=== PATIENT | female | born 1985 | race Two or more races ===

== ENCOUNTER 2021-06-29 12:20 | Emergency (ER) | payer MEDICAID, SELFPAY ==
--- NOTE | ~2021-06-29 | CT_ITS ---
EXAMINATION: CT CHEST WITHOUT CONTRAST CLINICAL INFORMATION: Chest pain. History of hiatal hernia COMPARISON: None TECHNIQUE: Multidetector volumetric CT imaging of the chest was done. Axial MIP volume rendering provided. Sagittal and coronal reformatted images were obtained. This CT examination was performed using dose optimization techniques as appropriate, variously including the following: *Automated exposure control *Adjustment of mA and/or kV according to patient size (this includes techniques or standardized protocols for targeted exams where dose is matched to indication/reason for exam; i.e. extremities or head) *Use of iterative reconstruction technique DLP: 469 mGy-cm FINDINGS: INSURANCE CLAIMS REPRESENTATIVE: Unremarkable. LUNGS: The lungs are well-expanded and clear of acute pneumonic consolidation. There is a three-way calcified nodule right lower lobe posteriorly. MEDIASTINUM: The mediastinum is normal. PLEURA: There is no pleural effusion. No pleural mass or thickening. AXILLA: No lymphadenopathy. UPPER ABDOMEN: Unremarkable. OSSEOUS STRUCTURES: Unremarkable. CT/CT chest wo con IMPRESSION: Unremarkable CT chest exam. Fleischner guidelines were followed.
[2021-06-29 12:27] VITALS: BP 131/70; PULSE 75; RESP 18; TEMP 36.8; O2SAT 100; BMI 47.5
--- NOTE | 2021-06-29 14:28 | ECG_ITS ---
Test Reason : abd pain Blood Pressure : / mmHG Vent. Rate : 064 BPM Atrial Rate : 064 BPM P-R Int : 162 ms QRS Dur : 082 ms QT Int : 402 ms P-R-T Axes : 033 012 016 degrees QTc Int : 414 ms Normal sinus rhythm Normal ECG No previous ECGs available Referred By: Rosangela Sanchez Electronically Signed By:Carlos Alberto Walton
--- NOTE | 2021-06-29 14:37 | ED_ITS ---
HPI - Abdominal Pain General Chief Complaint: Abdominal Pain Stated Complaint: Hernia with Multiple Complaints Time Seen by Provider: 06/29/21 12:40 Source: patient and family Mode of arrival: ambulatory Limitations: no limitations History of Present Illness HPI narrative: 36 y/o female with history of a hiatial hernia presents to the ER with worsening epigastric abdominal pain x1 week that radiates up into her chest. She also reports nausea with intermittent vomiting. She has had subjective fevers as well. She states the pain in her upper abdomen is burning and goes up into the chest. She is unable to tolerate p.o. and states the pain does not get worse after eating. She saw was seen by a bleach analyst in [place] where she used to live who told her that her hernia was non operable. She has been t rialed on several medications including Zantac, Pepcid, Prilosec with no relief. Her last EGD was several years ago. MD elicited complaint: abdominal pain Pertinent past history: other (Hiatal hernia) Onset (ago): week(s) (1) Pain Consistency: intermittent Location: epigastric Severity: moderate Quality: fullness and burning Radiation: chest Migration to: no migration Exacerbating factors: nothing Relieving factors: nothing Context: history of similar episodes Associated symptoms: nausea Related Data Previous Rx's Medication Instructions Recorded ondansetron 4 mg disintegrating 4 mg PO DAILY PRN #10 tab 06/29/21 tablet pantoprazole 40 mg tablet,delayed 40 mg PO DAILY #30 tab 06/29/21 release (Protonix) sucralfate 1 gram tablet (Carafate) 1 g PO BID #60 tab 06/29/21 Allergies Allergy/AdvReac Type Severity Reaction Status Date / Time Unable to Assess Allergy Unverified 06/29/21 14:28 Review of Systems Review of Systems Constitutional: No Fever, No Chills ENT/Mouth: No sore throat, No Rhinorrhea, No Swallowing Difficulty Cardiovascular: + Chest Pain, No SOB, No Orthopnea, No Edema Respiratory: No Cough, No Sputum, No Wheezing, No dyspnea Gastrointestinal: + Nausea, + Vomiting, No Diarrhea,+ abdominal Pain, No Hematochezia, No Melena Genitourinary: No Dysuria, No Urinary Frequency, No Hematuria Musculoskeletal: No joint pain, No Myalgias Skin: No Skin Lesions, No rash Neuro: No Weakness, No Numbness, No Dizziness, No Headache Psych: No Anxiety/Panic, No Depression Heme/Lymph: No Bruising, No Lymphadenopathy Endocrine: No Polyuria, No Polydipsia PMFSH Social History Social History Advance Directives: No Advance Directives Information Provided: Yes Physical Exam ED Vital Signs: Vital Signs - 24 hr 06/29/21 12:27 Temperature 98.2 F Pulse Rate 75 Respiratory Rate 18 Blood Pressure 131/70 Pulse Oximetry 100 BMI result Body Mass Index 47.5 Appearance: Alert. Oriented X3. No acute distress. Eyes: Pupils equal, round and reactive to light. ENT: Pharynx normal. Neck: Normal inspection. Neck supple. CVS: Normal heart rate and rhythm. Pulses normal. Respiratory: No respiratory distress. Breath sounds normal. Abdomen: Obese, Soft and nontender. +BS x4 Skin: Skin warm and dry. Normal skin color. Normal skin turgor. No rashes. Extremities: No lower extremity edema. Neuro: Oriented X 3. No motor deficit. No sensory deficit. Course Course Course Narrative: 36-year-old female with history of a hiatal hernia presents to the ER with 1 week of worsening epigastric pain that radiates up into her chest. She also reports nausea, vomiting and subjective fevers. Her abdominal exam is benign. Will do lab workup and CT scan for further evaluation. IV fluids and Zofran ordered for nausea. Reevaluation(s) Reevaluation #1: Labs ok. Feeling better after zofran and IVF. CT still pending. Reevaluation #2: CT normal. No hiatial hernia. Symptoms most likely due to gastritis vs GERD. Not currently on PPI - will start PPI as well as carafate and PRN zofran. will give GI referral as well for possible EGD. Stable for d/c home. MDM - Abdominal Pain Lab Data Result diagrams: 06/29/21 16:14 06/29/21 14:53 Labs: Lab Results 06/29/21 06/29/21 06/29/21 Range/Units 14:53 14:53 14:53 WBC (4.8-10.8) X10*3/uL RBC (4.20-5.50) X10*6/uL Hgb (12.0-16.0) g/dl Hct (37.0-47.0) % MCV (80.0-98.0) fL MCH (27.0-33.0) pg MCHC (31.0-35.0) g/dl RDW (11.0-16.0) % Plt Count (160-400) X10*3/uL MPV (9.4-12.3) fL Immature Gran % (Auto) (0.0-0.4) % Neut % (Auto) (45-73) % Lymph % (Auto) (20-40) % [place] % (Auto) (2-11) % Eos % (Auto) (0-4) % Baso % (Auto) (0-2) % Lymph # (Auto) (1.2-4.9) X10*3/uL [place] # (Auto) (0.1-1.2) X10*3/uL Eos # (Auto) (0.0-0.4) X10*3/uL Baso # (Auto) (0.0-0.2) X10*3/uL Abs Immat Gran (auto) (0.00-0.03) X10*3/uL Absolute Neuts (auto) (2.0-8.3) x10*3/uL Absolute Nucleated RBC (0.0-0.012) X10*3/uL Nucleated RBC % (auto) (0.0-0.2) /100WBC Sodium 139 (135-145) mmol/L Potassium 4.4 (3.3-5.1) mmol/L Chloride 104 (96-108) mmol/L Carbon Dioxide 26 (22-29) mmol/L Anion Gap 13 (12-20) BUN 10 (9-16) mg/dL Creatinine 0.76 (0.5-1.4) mg/dL Estim Creat Clear Calc 122.3 Estimated GFR > 60 Random Glucose 94 (60-115) mg/dL Calcium 9.7 (8.4-10.2) mg/dL Magnesium 2.2 (1.6-2.6) mg/dL Total Bilirubin 0.3 (0.0-1.0) mg/dL Direct Bilirubin < 0.2 (0.0-0.5) mg/dL AST 18 (5-31) U/L ALT 28 (0-31) U/L Alkaline Phosphatase 66 (39-117) U/L Troponin I High Sens < 3.5 (<3.5-17.0) ng/L Total Protein 7.0 (6.5-8.0) g/dL Albumin 4.4 (3.5-5.0) g/dL Lipase 23 (8-78) U/L COVID-19 (RUBI) Negative (Negative) COVID-19 Clin Com See Note 06/29/21 Range/Units 16:14 WBC 6.8 (4.8-10.8) X10*3/uL RBC 4.59 (4.20-5.50) X10*6/uL Hgb 12.3 (12.0-16.0) g/dl Hct 38.7 (37.0-47.0) % MCV 84.3 (80.0-98.0) fL MCH 26.8 L (27.0-33.0) pg MCHC 31.8 (31.0-35.0) g/dl RDW 13.2 (11.0-16.0) % Plt Count 346 (160-400) X10*3/uL MPV 9.0 L (9.4-12.3) fL Immature Gran % (Auto) 0.6 H (0.0-0.4) % Neut % (Auto) 52.9 (45-73) % Lymph % (Auto) 36.8 (20-40) % [place] % (Auto) 6.5 (2-11) % Eos % (Auto) 2.5 (0-4) % Baso % (Auto) 0.7 (0-2) % Lymph # (Auto) 2.5 (1.2-4.9) X10*3/uL [place] # (Auto) 0.4 (0.1-1.2) X10*3/uL Eos # (Auto) 0.2 (0.0-0.4) X10*3/uL Baso # (Auto) 0.1 (0.0-0.2) X10*3/uL Abs Immat Gran (auto) 0.04 H (0.00-0.03) X10*3/uL Absolute Neuts (auto) 3.6 (2.0-8.3) x10*3/uL Absolute Nucleated RBC 0.000 (0.0-0.012) X10*3/uL Nucleated RBC % (auto) 0.0 (0.0-0.2) /100WBC Sodium (135-145) mmol/L Potassium (3.3-5.1) mmol/L Chloride (96-108) mmol/L Carbon Dioxide (22-29) mmol/L Anion Gap (12-20) BUN (9-16) mg/dL Creatinine (0.5-1.4) mg/dL Estim Creat Clear Calc Estimated GFR Random Glucose (60-115) mg/dL Calcium (8.4-10.2) mg/dL Magnesium (1.6-2.6) mg/dL Total Bilirubin (0.0-1.0) mg/dL Direct Bilirubin (0.0-0.5) mg/dL AST (5-31) U/L ALT (0-31) U/L Alkaline Phosphatase (39-117) U/L Troponin I High Sens (<3.5-17.0) ng/L Total Protein (6.5-8.0) g/dL Albumin (3.5-5.0) g/dL Lipase (8-78) U/L COVID-19 (RUBI) (Negative) COVID-19 Clin Com Critical Care Time Critical Care Time Critical Care Time: No Discharge Plan Discharge Clinical Impression: Gastritis Patient Disposition: Home, Self-Care Instructions: Gastritis (DC), Diet for Stomach Ulcers and Gastritis (ED) Additional Instructions: Your lab workup today was unremarkable. Your CT scan did NOT show any hiatial hernia. Your pain is most likely due to gastritis which is and irritation and inflammation of your stomach lining. Start taking the prescribed medication as directed for this. Stick to a bland diet. Avoid foods high in acid, avoid alcohol and NSAID medications like Aleve, Motrin, Advil or ibuprofen. Follow up with your doctor as needed. Follow up with GI doctor if you symptoms persist despite dietary modifications a nd medication. If you develop new or worsening symptoms call 911 or come back to the ER for further evaluation. Prescriptions: New pantoprazole [Protonix] 40 mg tablet,delayed release (DR/EC) 40 mg PO DAILY Qty: 30 0RF sucralfate [Carafate] 1 gram tablet 1 g PO BID Qty: 60 0RF ondansetron 4 mg tablet,disintegrating 4 mg PO DAILY PRN (Reason: nausea and vomiting) Qty: 10 0RF Referrals: Camilo Bishop MD [Physician] - 1 week (epigastric abd pain) Print Language: Gabonese
[2021-06-29] MEDS: 0.9 % Sodium Chloride 1,000 ML 999 ML IVCONT (15:01)
[2021-06-29] MEDS: ondansetron HCL 4 MG/2 ML VIAL IVPUSH (15:01)
[2021-06-29 15:16] LABS: IDNOW Serial# 16C4AD1C
[2021-06-29 15:17] LABS: COVID-19 Test Negative (Negative)
[2021-06-29 15:25] LABS: Alanine Aminotransferase 28 U/L (0-31); Albumin Level 4.4 g/dL (3.5-5.0); Alkaline Phosphatase 66 U/L (39-117); Anion Gap 13 (12-20); Aspartate Amino Transferase 18 U/L (5-31); Bilirubin Direct < 0.2 mg/dL (0.0-0.5); Bilirubin Total 0.3 mg/dL (0.0-1.0); Blood Urea Nitrogen 10 mg/dL (9-16); Calcium 9.7 mg/dL (8.4-10.2); Carbon Dioxide 26 mmol/L (22-29); Chloride 104 mmol/L (96-108); Creatinine Clr Calc Pharmacy 122.3; Estimated Glomerular Filt Rate > 60; Glucose Random 94 mg/dL (60-115); Lipase 23 U/L (8-78); Magnesium 2.2 mg/dL (1.6-2.6); Potassium 4.4 mmol/L (3.3-5.1); Sodium 139 mmol/L (135-145)
[2021-06-29 15:31] LABS: Troponin-I High Sensitivity < 3.5 ng/L (<3.5-17.0)
[2021-06-29 16:19] LABS: MANUAL DIFF FLAG NO
[2021-06-29 16:21] LABS: Basophils Absolute Auto 0.1 X10*3/uL (0.0-0.2); Basophils Percent Auto 0.7 % (0-2); Eosinophils Absolute Auto 0.2 X10*3/uL (0.0-0.4); Eosinophils Percent Auto 2.5 % (0-4); Hematocrit 38.7 % (37.0-47.0); Hemoglobin 12.3 g/dl (12.0-16.0); Imm Gran Abs Auto 0.04 X10*3/uL (0.00-0.03); Imm Gran Pct Auto 0.6 % (0.0-0.4); Lymphocytes Absolute Auto 2.5 X10*3/uL (1.2-4.9); Lymphocytes Percent Auto 36.8 % (20-40); Mean Corpuscular HGB Conc 31.8 g/dl (31.0-35.0); Mean Corpuscular Hemoglobin 26.8 pg (27.0-33.0); Mean Corpuscular Volume 84.3 fL (80.0-98.0); Monocytes Absolute Auto 0.4 X10*3/uL (0.1-1.2); Monocytes Percent Auto 6.5 % (2-11); Neutrophils Absolute Auto 3.6 x10*3/uL (2.0-8.3); Neutrophils Percent Auto 52.9 % (45-73); Platelet Count 346 X10*3/uL (160-400); Red Blood Count 4.59 X10*6/uL (4.20-5.50); Red Cell Distribution Width 13.2 % (11.0-16.0); White Blood Count 6.8 X10*3/uL (4.8-10.8)
== END 2021-06-29 18:15 | disposition home or self-care (01) ==
PROVIDERS: Physician Assistant; Emergency Provider Emergency Medicine Emergency Medical Services
DX: K29.70 Gastritis, unspecified, without bleeding (principal); M54.6 Pain in thoracic spine; Z79.899 Other long term (current) drug therapy; Z20.822 Contact with and (suspected) exposure to COVID-19
CPT/HCPCS: 36415; 71250; 80048; 80076; 83605; 83690; 83735; 84484; 85025; 87635; 93005; 96374; 99283; 99284; J2405

== ENCOUNTER → 2021-07-07 07:25 | Outpatient (BNVA) | payer MEDICAID, SELFPAY | PROVIDERS: Visit Provider Physician Assistant | DX: K44.9 Diaphragmatic hernia without obstruction or gangrene (principal); R12 Heartburn; R10.13 Epigastric pain; J45.909 Unspecified asthma, uncomplicated | CPT/HCPCS: 99202 ==

== ENCOUNTER 2021-08-14 12:11 | Outpatient (REF) | payer MEDICAID, SELFPAY ==
--- NOTE | ~2021-08-14 | XR_ITS ---
EXAMINATION: XR LUMBOSACRAL SPINE CLINICAL INFORMATION: Low back pain. COMPARISON: None TECHNIQUE: AP, both oblique, and lateral views of the lumbar spine. Lateral view of the lumbosacral junction. FINDINGS: There are 5 nonrib-bearing lumbar vertebra. The bony texture and alignment is satisfactory. No acute fracture, spondylolisthesis, or spondylolysis is identified. There is mild degenerative change of the sacroiliac joints bilaterally right greater than left. XR/XR lumbar spine 4V min IMPRESSION: No acute fracture, spondylolisthesis, or spondylolysis of the lumbar spine with maintenance of disc spaces. Mild sacroiliac joint degenerative change.
== END 2021-08-14 12:12 | disposition home or self-care (01) ==
LOC: HO.XRAY 12:11
PROVIDERS: PCP Internal Medicine; Visit Provider Internal Medicine
DX: M54.50 Low back pain, unspecified (principal)
CPT/HCPCS: 72110

== ENCOUNTER 2021-08-29 07:38 | Emergency (ER) | payer MEDICAID, SELFPAY ==
[2021-08-29 07:42] VITALS: BP 140/78; PULSE 73; RESP 16; TEMP 36.6; O2SAT 99; BMI 38.2
--- NOTE | 2021-08-29 08:39 | ED_ITS ---
HPI - General Adult General Chief complaint: Back Pain/Injury Stated complaint: Body aches Time Seen by Provider: 08/29/21 08:39 Source: patient Mode of arrival: ambulatory Limitations: no limitations History of Present Illness HPI narrative: Patient is a 36 year old female presenting to the emergency department today with low back pain. Patient states that for the last 3 weeks she has had low back pain that is worse with extensive standing times and physical activity. Patient denies any dizziness, lightheadedness, abdominal pain, nausea, vomiting, fever, chills, blurry vision, double vision, loss of vision, chest pain, difficulty breathing, shortness of breath, night sweats, pain with urination, increased urinary frequency, increased urinary urgency, blood in her urine or stool, syncope or a near syncopal episode, recent trauma or falls, bowel incontinence, bladder incontinence, bowel retention, bladder retention, or any other complaints at this time. Onset (ago): week(s) (3) Location: back Radiation: non-radiation Severity: mild Severity scale (1-10): 3 Quality: dull Pain Consistency: constant Relieving factors: none Exacerbating factors: movement Associated symptoms: denies other symptoms Treatments prior to arrival: none Related Data Previous Rx's Medication Instructions Recorded ondansetron 4 mg disintegrating 4 mg PO DAILY PRN #10 tab 06/29/21 tablet pantoprazole 40 mg tablet,delayed 40 mg PO DAILY #30 tab 06/29/21 release (Protonix) sucralfate 1 gram tablet (Carafate) 1 g PO BID #60 tab 06/29/21 pantoprazole 20 mg tablet,delayed 20 mg PO BID PRN #60 tab 07/07/21 release cyclobenzaprine 10 mg tablet 10 mg PO TID PRN 7 Days #21 tab 08/29/21 Allergies Allergy/AdvReac Type Severity Reaction Status Date / Time No Known Allergies Allergy Verified 08/29/21 07:51 Review of Systems Constitutional: Constitutional: Reports no additional constitutional complaints, Denies chills, Denies fever(s) and Denies night sweats Eyes: Eyes: Reports no additional eye complaints, Denies blurry vision, Denies change in vision, Denies diplopia, Denies eye discharge, Denies loss of vision and Denies eye pain ENT: Denies dizziness Cardiovascular: Cardiovascular: Reports no additional cardiovascular complaints, Denies chest pain, Denies lightheadedness, Denies Loss of Consciousness and Denies dyspnea Respiratory: Respiratory: Reports no additional respiratory complaints and Denies dyspnea Gastrointestinal: Gastrointestinal: Reports no additional gastrointestinal complaints, Denies abdominal pain, Denies melena, Denies hematochezia, Denies change in bowel habits and Denies change in stool character Genitourinary: Genitourinary: Denies hematuria, Denies urinary frequency, Denies dysuria, Denies urinary incontinence, Denies urinary hesitancy and Denies urinary urgency Musculoskeletal: Musculoskeletal: Reports no additional musculoskeletal complaints, Reports back pain, Denies numbness and Denies tingling Neurologic: Denies dizziness, Denies loss of vision, Denies numbness and Denies tingling Psychiatric: Psychiatric: Reports no additional psychiatric complaints Endocrine: Endocrine: Reports no additional endocrine complaints Hematologic/Lymphatic: Hematologic/Lymphatic: Reports no additional hematologic/lymphatic complaints Allergic/Immunologic: Allergic/Immunologic: Reports no additional allergic/immunologic complaints PMFSH Past Medical History Attestation statement: The following information was validated with the patient. Source: old records reviewed Medical History Asthma Epigastric pain Surgical History History of colonoscopy History of endoscopy Social History Social History Household Members Other:: single-4 kids Alcohol intake: never Patient Tobacco Use Status: Never used Tobacco Advance Directives: No Advance Directives Information Provided: Yes Current occupational status: employed Current occupation: [employer] Physical Exam ED Vital Signs: Vital Signs - 24 hr 08/29/21 07:42 Temperature 97.8 F Pulse Rate 73 Respiratory Rate 16 Blood Pressure 140/78 H Pulse Oximetry 99 BMI result Body Mass Index 38.2 Const General: cooperative, no acute distress, alert and awake Nutritional Appearance: well nourished Orientation/consciousness: patient oriented x3 Limitations: no limitations HENMT Head: Yes normal to inspection and Yes atraumatic Ears: hearing grossly normal bilaterally and external ears normal General nose exam: Normal external nose present, no nasal discharge noted and no epistaxis Face and sinus: Yes normal facial exam, No abrasion and No laceration Mouth: Normal oral and palatal mucosa present, no drooling and no muffled voice Eyes General: appearance normal, both eyes and all related structures Periorbital: periorbital findings normal Eyelids: Yes eyelids normal Conjunctivae: conjunctivae normal Pupils: Equal, round and reactive pupils present EOM: EOMs intact bilaterally Neck Neck: Yes normal visual inspection, Yes full ROM and Yes no lymphadenopathy Chest Chest palpation & inspection: normal inspection of the chest Resp Effort & Inspection: normal respiratory effort and able to speak in complete sentences Auscultation: clear to auscultation bilaterally Cardio Rate: regular rate Rhythm: regular rhythm GI Inspection: Yes normal to inspection General: Yes no CVA tenderness Back/Spine/Pelvis Back: no CVA tenderness Cervical Spine: normal cervical lordosis and cervical ROM normal Thoracic/Lumbar Spine: thoracic and lumbar spine normal to inspection and thoraco-lumbar ROM normal Pelvis: no pain with anterior-posterior compression Neuro General: patient oriented x3 and moves all extremities Cranial nerves: Yes Equal, round and reactive pupils present Cognition (Neuro): normal cognition Motor exam (neuro): 5/5 motor strength present throughout Sensory Exam: Normal double simultaneous stimulation for sensation Coordination: [id number] test normal Extrem General: Yes normal to inspection, Yes full ROM and Yes capillary refill normal Psych Appearance: grossly normal Mental Status: mental status grossly normal Affect: normal affect Attitude: cooperative Thought process: Normal thought process present Thought content: Normal thought content present Insight: Good insight present (Psych) Medical Decision Making MDM Narrative Medical decision making narrative: Patient is a 36 year old female presenting to the emergency department today with low back pain. Patient's physical exam was unremarkable. I explained my physical exam findings to the patient. I answered all questions asked by the patient. Patient received PO Flexeril and IM Toradol which she stated helped her symptoms significantly. I stressed the importance of the patient taking her medication as prescribed. I stressed the importance of the patient following up with her primary care provider. I stressed the importance of the patient return ing to the emergency department immediately if her symptoms were to worsen or if she were to develop any dizziness, shortness of breath, difficulty breathing, chest pain, blurry vision, loss of vision, nausea, vomiting, abdominal pain, fever, chills, back pain, or any other complaints. Patient verbalized agreement and understanding with this treatment plan and discharge. Differential Diagnosis Differential Diagnosis: Back spasm, low back pain Medical Records Medical records reviewed: Yes I reviewed the patient's medical records. Discharge Plan Discharge Clinical Impression: Back spasm Patient Disposition: Home, Self-Care Instructions: Back Pain (ED) Additional Instructions: Follow up with your primary care provider. Return to the emergency department immediately if your symptoms worsen or if you develop any dizziness, shortness of breath, difficulty breathing, chest pain, blurry vision, loss of vision, nausea, vomiting, abdominal pain, fever, chills, back pain, or any other complaints. Prescriptions: New cyclobenzaprine 10 mg tablet 10 mg PO TID PRN (Reason: muscle spasm) 7 Days Qty: 21 0RF No Action pantoprazole [Protonix] 40 mg tablet,delayed release (DR/EC) 40 mg PO DAILY Qty: 30 0RF sucralfate [Carafate] 1 gram tablet 1 g PO BID Qty: 60 0RF ondansetron 4 mg tablet,disintegrating 4 mg PO DAILY PRN (Reason: nausea and vomiting) Qty: 10 0RF pantoprazole 20 mg tablet,delayed release (DR/EC) 20 mg PO BID PRN (Reason: acid reflux) Qty: 60 3RF Referrals: Marguerite Hopson MD [Primary Care Provider] - Stand Alone Forms: Work/School Release Interventions: ED Discharge Assessment Last Done: 08/29/21 09:24 Discharge Date/Time: 08/29/21 09:24 Print Language: Serbian
[2021-08-29] MEDS: Cyclobenzaprine HCl 10 MG TABLET PO (09:15)
[2021-08-29] MEDS: Ketorolac Tromethamine 15 MG/ML VIAL IM (09:15)
== END 2021-08-29 09:24 | disposition home or self-care (01) ==
PROVIDERS: Emergency Provider Emergency Medicine Emergency Medical Services; PCP Internal Medicine
DX: M62.830 Muscle spasm of back (principal); J45.909 Unspecified asthma, uncomplicated
CPT/HCPCS: 96372; 99283; 99284; J1885

== ENCOUNTER 2021-09-23 13:12 | Outpatient (REF) | payer MEDICAID, SELFPAY ==
--- NOTE | ~2021-09-23 | XR_ITS ---
EXAMINATION: XR CERVICAL SPINE CLINICAL INFORMATION: Cervicalgia COMPARISON: None TECHNIQUE: Cervical spine is imaged in 6 views. FINDINGS: There is straightening and borderline reversal cervical lordosis with mild rightward tilting which may be related to muscle spasm. Vertebral bodies are normal in height and there is no cervical vertebral compression, disc narrowing, spondylolisthesis, or erosive changes, or prevertebral soft tissue swelling. No bony destructive process. No osseous narrowing of the neural foramina. The odontoid appears intact. No cervical rib. XR/XR cervical spine 4V IMPRESSION: -Straightening and mild reversal cervical lordosis with mild rightward tilting which may be related to muscle spasm. -No vertebral compression, disc narrowing, spondylolisthesis.
== END 2021-09-23 13:13 | disposition home or self-care (01) ==
LOC: HO.XRAY 13:12
PROVIDERS: PCP Internal Medicine; Visit Provider Internal Medicine
DX: M54.2 Cervicalgia (principal)
CPT/HCPCS: 72050

== ENCOUNTER 2021-09-25 06:32 | Emergency (ER) | payer MEDICAID, SELFPAY ==
[2021-09-25 06:35] VITALS: BP 125/96; PULSE 83; RESP 16; TEMP 36.8; O2SAT 99; BMI 37.6
[2021-09-25 06:56] VITALS: O2SAT 99
[2021-09-25 07:04] LABS: COVID-19 Test Negative (Negative); IDNOW Serial# 16C4AD1C; Influenza A Negative (Negative); Influenza B2 Positive (Negative)
--- NOTE | 2021-09-25 07:33 | ED.URI ---
HPI - URI/Sore Throat General Chief Complaint: Upper Respiratory Symptoms Stated Complaint: nausea, body chills, headache Time Seen by Provider: 09/25/21 07:31 Source: patient and family Mode of arrival: ambulatory History of Present Illness HPI Narrative: 36-year-old female presents with complaints of headache, body aches, sore throat, mild dry cough for the past 4 days. She also describes fevers and chills. But otherwise denies GI or symptoms. Related Data Previous Rx's Medication Instructions Recorded ondansetron 4 mg disintegrating 4 mg PO DAILY PRN nausea and 06/29/21 tablet vomiting #10 tabs pantoprazole 40 mg tablet,delayed 40 mg PO DAILY #30 tabs 06/29/21 release (Protonix) sucralfate 1 gram tablet (Carafate) 1 g PO BID #60 tabs 06/29/21 pantoprazole 20 mg tablet,delayed 20 mg PO BID PRN acid reflux #60 07/07/21 release tabs cyclobenzaprine 10 mg tablet 10 mg PO TID PRN muscle spasm 7 08/29/21 days #21 tabs Allergies Allergy/AdvReac Type Severity Reaction Status Date / Time No Known Allergies Allergy Verified 09/25/21 06:38 Review of Systems Review of Systems: Pertinent positives and negatives as stated in HPI 10 point review of systems is otherwise negative. [facility] Past Medical History Source: nursing notes reviewed Surgical History History of colonoscopy History of endoscopy Social History Social History Household Members Other:: single-4 kids Alcohol intake: never Patient Tobacco Use Status: Never used Tobacco Use of substances other than those prescribed or required for medical reasons: Unknown Advance Directives: No Advance Directives Information Provided: Yes Patient : No Current occupational status: employed Current occupation: [employer] Physical Exam Vital Signs: Vital Signs: Last Vital Signs Temp 98.2 F 09/25/21 06:35 Pulse 83 09/25/21 06:35 Resp 16 09/25/21 06:35 BP 125/96 H 09/25/21 06:35 Pulse Ox 99 09/25/21 06:56 O2 Del Method 09/25/21 06:56 BMI result Body Mass Index 37.6 VITAL SIGNS: Reviewed. GENERAL: Well developed, well nourished, in no acute distress. HEAD: Normocephalic/atraumatic EYES: PERRLA, EOMI EARS: Ext canals without abnormality, TMs non-bulging and non-erythematous NOSE: Nares patent bilateral OROPHARYNX: no oral lesions noted, posterior pharynx clear and non-erythematous without noted tonsillar enlargement/erythema/exudates NECK: Supple, no adenopathy LUNGS: Normal breath sounds, no tachypnea, no expiratory wheeze. No adventitious sounds or accessory muscle use. SpO2<99> CARDIOVASCULAR: Regular rate and rhythm without noted murmurs ABDOMEN: Soft, non-tender, non-distended with bowel sounds. MUSCULOSKELETAL: No tenderness, deformities, or effusions noted on gross inspection. EXTREMITIES: No cyanosis, clubbing or edema. SKIN: Inspection of the skin reveals no rashes NEUROLOGIC: Alert and oriented x 4. Strength and sensation to light touch were grossly intact x 4. Course Course Course Narrative: 36-year-old female with history and clinical presentation in conjunction with review of investigations is found to be positive for influenza A. She has been symptomatic for 4 days and understands that she is not qualified for this him fluid this time. She was instructed to go home, rest drink plenty of fluids and to treat her symptoms with Tylenol ibuprofen. MDM - URI/Sore Throat Lab Data Labs: Lab Results 09/25/21 09/25/21 Range/Units 06:39 06:39 COVID-19 (RUBI) Negative (Negative) COVID-19 Clin Com See Note Influenza Type A (MANOJ) Negative (Negative) Influenza Type B (MANOJ) Positive A (Negative) Influenza A & B Note See Note Discharge Plan Discharge Clinical Impression: Viral syndrome, Influenza A Patient Disposition: Home, Self-Care Instructions: Viral Syndrome (ED), Influenza (ED) Additional Instructions: 1. Johnna jarek agua y recomiende Tylenol/ibuprofeno de venta nasrin seg?n sea necesario para hollis corporales, hollis de leobardo, temperaturas superiores a 100.4. 2. Debe usar m?scara mientras est? en el trabajo. 3. Seguimiento con bell proveedor de atenci?n primaria. Regrese a la megha de emergencias si los s?ntomas empeoran. Prescriptions: No Action pantoprazole [Protonix] 40 mg tablet,delayed release (DR/EC) 40 mg PO DAILY Qty: 30 0RF sucralfate [Carafate] 1 gram tablet 1 g PO BID Qty: 60 0RF ondansetron 4 mg tablet,disintegrating 4 mg PO DAILY PRN (Reason: nausea and vomiting) Qty: 10 0RF cyclobenzaprine 10 mg tablet 10 mg PO TID PRN (Reason: muscle spasm) 7 Days Qty: 21 0RF pantoprazole 20 mg tablet,delayed release (DR/EC) 20 mg PO BID PRN (Reason: acid reflux) Qty: 60 3RF Referrals: Marguerite Hopson MD [Primary Care Provider] - Stand Alone Forms: Work/School Release Print Language: Citizen Of [place]
[2021-09-25 07:51] VITALS: BP 135/59; PULSE 64; RESP 16; TEMP 36.7; O2SAT 96
[2021-09-25] MEDS: Acetaminophen 325 MG TABLET 975 MG PO (08:21)
[2021-09-25] MEDS: Ibuprofen 400 MG TABLET PO (08:21)
== END 2021-09-25 08:28 | disposition home or self-care (01) ==
PROVIDERS: Emergency Provider Student in an Organized Health Care Education/Training Program; PCP Internal Medicine
DX: B34.9 Viral infection, unspecified (principal); J11.1 Influenza due to unidentified influenza virus with other respiratory manifestations; Z20.822 Contact with and (suspected) exposure to COVID-19; R68.83 Chills (without fever); J45.909 Unspecified asthma, uncomplicated
CPT/HCPCS: 87502; 87635; 99283; 99284

== ENCOUNTER 2021-10-02 14:30 | Outpatient (RCR) | payer MEDICAID, SELFPAY | END 2021-10-07 13:53 | disposition home or self-care (01) | LOC: HO.OT 14:30 | PROVIDERS: PCP Internal Medicine; Visit Provider Internal Medicine | DX: M79.641 Pain in right hand (principal); M79.642 Pain in left hand | CPT/HCPCS: 97110; 97140; 97165 ==

== ENCOUNTER 2021-12-04 17:47 | Outpatient (REF) | payer MEDICAID, SELFPAY ==
--- NOTE | ~2021-12-04 | MR_ITS ---
EXAMINATION: MR LUMBAR SPINE WITHOUT CONTRAST CLINICAL INFORMATION: Low back pain and bilateral lumbago. COMPARISON: Plain films of the lumbar spine 08/14/2021. TECHNIQUE: MRI of the lumbar spine was obtained using routine sequences without contrast. FINDINGS: VERTEBRAL BODIES AND PARASPINAL STRUCTURES: There is anatomic alignment of the vertebral bodies. There is narrowing of and loss of signal from the intervertebral disc at L3-L4. Intervertebral disc height and signal are maintained at other levels. The vertebral bodies of normal height and contour no fractures are demonstrated. Overall, marrow signal is homogenous. The visualized retroperitoneal and pelvic structures are unremarkable. There are mild degenerative changes in the sacroiliac joints. CONUS MEDULLARIS AND CAUDA EQUINA: Normal, terminating at the level of L1. The lower thoracic spinal cord appears normal. The cauda equina nerve roots and filum terminale appear normal. SPINAL LEVELS: L1-L2: The facet joints appear normal bilaterally. Disc contour is normal. There is no central stenosis or foraminal narrowing. L2-L3: The facet joints appear normal bilaterally. Disc contour is normal. There is no central stenosis or foraminal narrowing. L3-L4: The facet joints appear normal. There is a small central disc protrusion posteriorly with an annular fissure which distorts the ventral thecal sac but the neural foramina are patent bilaterally and there is no central stenosis. L4-L5: There is mild bilateral facet arthropathy. There is a mild diffuse disc bulge. There is no central stenosis or foraminal narrowing. L5-S1: There is mild to moderate facet arthropathy bilaterally. Disc contour is normal. There is no central stenosis or foraminal narrowing. MR/MR lumbar spine wo con IMPRESSION: 1. At L3-L4 there is a small central disc protrusion posteriorly without central stenosis, and the neural foramina are patent bilaterally. 2. At L5-S1 there is mild to moderate facet arthropathy. Disc contour is normal and the neural foramina are patent.
== END 2021-12-04 17:48 | disposition home or self-care (01) ==
LOC: HO.MRI 17:47
PROVIDERS: Visit Provider Registered Nurse
DX: M54.41 Lumbago with sciatica, right side (principal); M54.42 Lumbago with sciatica, left side
CPT/HCPCS: 72148

== ENCOUNTER 2021-12-17 17:09 | Outpatient (REF) | payer MEDICAID, SELFPAY ==
--- NOTE | ~2021-12-17 | XR_ITS ---
EXAMINATION: XR FOOT, RIGHT CLINICAL INFORMATION: Pain. COMPARISON: None TECHNIQUE: AP, lateral, and oblique views of the right foot. FINDINGS: The bones and soft tissues are normal. No fracture. Alignment is anatomic. Joint spaces are maintained. A small retrocalcaneal enthesophyte is seen. XR/XR foot RT min 3V IMPRESSION: Unremarkable right foot.
[2021-12-17 17:24] LABS: MANUAL DIFF FLAG NO
[2021-12-17 18:06] LABS: Basophils Absolute Auto 0.1 X10*3/uL (0.0-0.2); Basophils Percent Auto 0.8 % (0-2); Eosinophils Absolute Auto 0.1 X10*3/uL (0.0-0.4); Eosinophils Percent Auto 2.2 % (0-4); Hematocrit 38.6 % (37.0-47.0); Hemoglobin 12.5 g/dl (12.0-16.0); Imm Gran Abs Auto 0.04 X10*3/uL (0.00-0.03); Imm Gran Pct Auto 0.6 % (0.0-0.4); Lymphocytes Absolute Auto 2.6 X10*3/uL (1.2-4.9); Lymphocytes Percent Auto 41.5 % (20-40); Mean Corpuscular HGB Conc 32.4 g/dl (31.0-35.0); Mean Corpuscular Hemoglobin 26.6 pg (27.0-33.0); Mean Corpuscular Volume 82.1 fL (80.0-98.0); Mean Platelet Volume 9.1 fL (9.4-12.3); Monocytes Absolute Auto 0.4 X10*3/uL (0.1-1.2); Monocytes Percent Auto 6.7 % (2-11); Neutrophils Percent Auto 48.2 % (45-73); Platelet Count 435 X10*3/uL (160-400); Red Cell Distribution Width 13.2 % (11.0-16.0); White Blood Count 6.3 X10*3/uL (4.8-10.8)
[2021-12-17 18:12] LABS: C Reactive Protein 0.55 mg/dL (< or = 0.50); Uric Acid 4.2 mg/dL (2.4-5.7)
[2021-12-17 18:28] LABS: Erythrocyte Sedimentation Rate 13 MM/HR (0-20)
== END 2021-12-17 17:10 | disposition home or self-care (01) ==
LOC: HO.LAB 17:09
PROVIDERS: Absent Provider Internal Medicine; PCP Internal Medicine; Visit Provider Nurse Practitioner Primary Care
DX: M79.671 Pain in right foot (principal)
CPT/HCPCS: 36415; 73630; 84550; 85025; 85652; 86140

== ENCOUNTER 2022-01-20 16:39 | Outpatient (REF) | payer MEDICAID, SELFPAY ==
[2022-01-21 13:53] LABS: H Pylori Breath Test Negative (Negative)
== END 2022-01-20 16:40 | disposition home or self-care (01) ==
LOC: HO.LNP 16:39
PROVIDERS: PCP Internal Medicine; Visit Provider Physician Assistant Surgical
DX: E66.01 Morbid (severe) obesity due to excess calories (principal); E78.00 Pure hypercholesterolemia, unspecified; Z71.3 Dietary counseling and surveillance; Z68.41 Body mass index [BMI] 40.0-44.9, adult; Z79.899 Other long term (current) drug therapy; Z11.0 Encounter for screening for intestinal infectious diseases
CPT/HCPCS: 83013; 99202; 99211

== ENCOUNTER 2022-01-21 07:08 | Outpatient (REF) | payer MEDICAID, SELFPAY ==
--- NOTE | ~2022-01-21 | XR_ITS ---
EXAMINATION: XR CHEST CLINICAL INFORMATION: Morbid/severe obesity due to excess calories COMPARISON: Negative CT chest 06/29/2021 TECHNIQUE: 2 views of the chest were obtained. FINDINGS: No significant abnormality is noted involving the heart, lungs, mediastinum, bony thorax or soft tissues. XR/XR chest 2V IMPRESSION: Unremarkable chest examination.
--- NOTE | 2022-01-21 07:13 | ECG_ITS ---
Test Reason : obesity Blood Pressure : / mmHG Vent. Rate : 063 BPM Atrial Rate : 063 BPM P-R Int : 154 ms QRS Dur : 080 ms QT Int : 396 ms P-R-T Axes : 037 028 022 degrees QTc Int : 405 ms Normal sinus rhythm Normal ECG When compared with ECG of 29-JUN-2021 14:38, No significant change was found Referred By: Boris De La Vega Electronically Signed By:LEI BLAIR MD
[2022-01-21 08:01] LABS: Estimated Average Glucose 131 mg/dL; Hemoglobin A1c % 6.2 %
[2022-01-21 08:08] LABS: Alanine Aminotransferase 27 U/L (0-31); Albumin Level 4.4 g/dL (3.5-5.0); Alkaline Phosphatase 81 U/L (39-117); Anion Gap 15 (12-20); Aspartate Amino Transferase 17 U/L (5-31); Bilirubin Total 0.2 mg/dL (0.0-1.0); Blood Urea Nitrogen 13 mg/dL (9-16); C Reactive Protein 0.71 mg/dL (< or = 0.50); Calcium 9.8 mg/dL (8.4-10.2); Carbon Dioxide 27 mmol/L (22-29); Chloride 104 mmol/L (96-108); Cholesterol 213 mg/dL; Estimated Glomerular Filt Rate > 60; Glucose Random 124 mg/dL (60-115); HDL Cholesterol 49 mg/dL; Iron 99 mcg/dL (30-160); LDL Cholesterol Calculated 119 mg/dl; Percent Iron Saturation 27 % (15-50); Potassium 4.7 mmol/L (3.3-5.1); Sodium 141 mmol/L (135-145); Total Iron Binding Capacity 363 mcg/dL (228-428); Total Protein 7.2 g/dL (6.5-8.0); Triglycerides 225 mg/dL; Unsaturated Iron Binding 264 ug/dL
[2022-01-21 08:31] LABS: Ferritin 197 ng/mL (10-122); Insulin 31 uU/mL (2-29); TSH reflex Free T4 2.31 uIU/mL (0.32-4.0); Vitamin D 25-OH Total 34.5 ng/mL (>30)
[2022-01-21 08:44] LABS: Folate > 20.0 ng/mL (> or = 4.0); Vitamin B12 519 pg/mL (200-900)
[2022-01-22 13:22] LABS: Calcium (PTHI) 9.7 mg/dL (8.6-10.2); PTHI 61 pg/mL (16-77)
[2022-01-25 02:25] LABS: Zinc 83 mcg/dL (60-130)
[2022-01-26 05:57] LABS: Vitamin B1 26 nmol/L (8-30)
[2022-01-27 19:17] LABS: Vitamin A 52 mcg/dL (38-98)
== END 2022-01-21 07:09 | disposition home or self-care (01) ==
LOC: HO.XRAY 07:08
PROVIDERS: PCP Internal Medicine; Visit Provider Physician Assistant Surgical
DX: E66.01 Morbid (severe) obesity due to excess calories (principal); E78.00 Pure hypercholesterolemia, unspecified
CPT/HCPCS: 36415; 71046; 80053; 80061; 82306; 82607; 82728; 82746; 83036; 83525; 83540; 83970; 84425; 84443; 84590; 84630; 86140; 93005

== ENCOUNTER → 2022-02-17 08:45 | Outpatient (BNVA) | payer MEDICAID, SELFPAY | PROVIDERS: PCP Internal Medicine; Visit Provider Physician Assistant Surgical | DX: E66.9 Obesity, unspecified (principal); Z68.37 Body mass index [BMI] 37.0-37.9, adult | CPT/HCPCS: 99212 ==

== ENCOUNTER → 2022-02-18 14:57 | Outpatient (BNVA) | payer MEDICAID, SELFPAY | PROVIDERS: PCP Internal Medicine; Referring Provider Physician Assistant Surgical; Visit Provider Dietitian, Registered | DX: E66.9 Obesity, unspecified (principal); Z71.3 Dietary counseling and surveillance | CPT/HCPCS: 97802 ==

== ENCOUNTER 2022-02-25 09:47 | Outpatient (REF) | payer MEDICAID, SELFPAY ==
[2022-02-25 12:00] LABS: HBsAGNum1 0.18 S/CO (0.00-0.99); HIV AB/AG Nonreactive (Nonreactive); HIV Num 1 0.07 S/CO (0.00-0.99); Hepatitis B Surface Antigen Negative (Negative); ~HepC Num1 0.06 S/CO (0.00-0.79); ~Hepatitis C Antibody Nonreactive (Nonreactive)
[2022-02-25 12:07] LABS: Syphilis Screen Nonreactive (Nonreactive)
[2022-02-25 16:05] LABS: CT PCR NOT DETECTED (Not Detect.); NG PCR NOT DETECTED (Not Detect.)
[2022-02-26 10:13] LABS: BV Int Neg Control Negative (Negative); BV Int Pos Control Positive (Positive)
[2022-02-27 23:47] LABS: HPV mRNA E6/E7 rflx Not Detected (Not Detected)
== END 2022-02-25 09:48 | disposition home or self-care (01) ==
LOC: HO.LAB 09:47
PROVIDERS: PCP Internal Medicine; Visit Provider Advanced Practice Midwife
DX: Z01.419 Encounter for gynecological examination (general) (routine) without abnormal findings (principal); Z11.4 Encounter for screening for human immunodeficiency virus [HIV]; Z11.51 Encounter for screening for human papillomavirus (HPV); Z11.3 Encounter for screening for infections with a predominantly sexual mode of transmission; E66.9 Obesity, unspecified; Z90.710 Acquired absence of both cervix and uterus
CPT/HCPCS: 86780; 86803; 87340; 87389; 87480; 87491; 87510; 87591; 87624; 87660; 88142

== ENCOUNTER → 2022-03-09 10:27 | Outpatient (BNVA) | payer MEDICAID, SELFPAY | PROVIDERS: PCP Internal Medicine; Referring Provider Internal Medicine; Visit Provider Physician Assistant Surgical | DX: E66.9 Obesity, unspecified (principal); Z68.36 Body mass index [BMI] 36.0-36.9, adult | CPT/HCPCS: 99212 ==

== ENCOUNTER 2022-03-10 07:51 | Outpatient (REF) | payer MEDICAID, SELFPAY ==
--- NOTE | ~2022-03-10 | US_ITS ---
EXAMINATION: US COMPLETE ABDOMEN WITH LIVER ELASTOGRAPHY CLINICAL INFORMATION: Obesity COMPARISON: None. TECHNIQUE: Real-time imaging of the abdominal viscera. Noninvasive ultrasound liver fibrosis assessment is performed using Allyssa ElastPQ point quantification shear wave elastography (2D-SWE) with a C5-2 MHz transducer. Multiple elastography samples are obtained. FINDINGS: PANCREAS: Normal. ABDOMINAL AORTA: The proximal, middle, and distal aortic segments are normal in caliber. INFERIOR VENA CAVA: Visualized portions are normal. LIVER: Liver echotexture is increased. The liver demonstrates normal size, and contour. No focal lesion or intrahepatic biliary duct dilatation. The right lobe measures 14.4 cm in length. The left lobe measures 8.6 cm in length. Portal flow is normal/hepatopedal Shear wave liver elastography median stiffness is 1.7 m/s (reference: normal median stiffness is 1.3 m/s or less). IQR/median stiffness to assess sampling precision is 0.25 (reference: good quality data set is IQR/median stiffness of 0.15 or less). GALLBLADDER: Normal. The gallbladder is physiologically distended without evidence of stones, sludge, polyps, wall thickening or pericholecystic fluid. COMMON BILE DUCT: Normal in caliber measuring 0.2 cm in diameter. RIGHT KIDNEY: Normal. No hydronephrosis. No renal calculi or focal parenchymal lesions. The kidney measures 11.3 cm in maximum dimension. LEFT KIDNEY: Normal. No hydronephrosis. No renal calculi or focal parenchymal lesions. The kidney measures 11.5 cm in maximum dimension. SPLEEN: Normal. The spleen measures 10 cm in maximum dimension. FREE FLUID: None. US/US abdomen comp w elastography IMPRESSION: 1. Impression: Echogenic liver probably representing fatty infiltration. 2. Liver elastography: Limited due to sampling error. In the absence of other known clinical signs, rules out compensated advanced chronic liver disease. REFERENCE: Society of Radiologists in Ultrasound Liver Stiffness Thresholds (2020): LIVER STIFFNESS THRESHOLDS: *Liver Stiffness equal or less than 1.3 m/s: High probability of being normal. *Liver Stiffness less than 1.7 m/s: In the absence of other known clinical signs, rules out compensated advanced chronic liver disease. *Liver Stiffness 1.7-2.1 m/s: Suggestive of compensated advanced chronic liver disease but need further test for confirmation. *Liver Stiffness over 2.1 m/s: Rules in compensated advanced chronic liver disease. *Liver Stiffness over 2.4 m/s: Suggestive of clinically significant portal hypertension. QUALITY OF DATA SET: *IQR/Median value equal or less than 0.15 implies a quality data set. *IQR/Median value over 0.15 implies a poor quality data set. SIGNIFICANT CHANGE FROM PRIOR EXAM: Significant change if liver stiffness measurement is 10% or greater from prior exam. OTHER CONSIDERATIONS: The stage of liver fibrosis may be overestimated in the setting of acute hepatitis, liver inflammation, elevated liver function tests, hepatic vascular congestion, obstructive cholestasis, non-fasting state, and infiltrative diseases such as amyloidosis and lymphoma. In some patients with NAFLD, the liver stiffness thresholds for compensated advanced chronic liver disease may be lower. In causes other than viral hepatitis and NAFLD, liver stiffness thresholds are not well established.
--- NOTE | ~2022-03-10 | FL_ITS ---
EXAMINATION: XR FLUOROSCOPY UPPER GI WITH AIR CLINICAL INFORMATION: Morbid/severe obesity. COMPARISON: None TECHNIQUE: Routine upper GI air-contrast study was performed in upright and lying position. FINDINGS: Following oral administration of thick barium and effervescent granules there is normal propagation bolus from the oral cavity through the pharynx, esophagus into stomach without any evidence of obstruction, narrowing or stricture. On placing patient supine and prone lying the course, caliber and peristalsis of the stomach, duodenal bulb and the sweep is normal. Mucosal pattern of the stomach, duodenum and esophagus is normal. No gastroesophageal reflux or hiatal hernia seen. FLUOROSCOPY TIME: 1.4 minutes DOSE AREA PRODUCT: 33.284 uGy-m2 (microgray-meter squared) Images: 43 FL/FL upper GI w air IMPRESSION: Unremarkable upper GI examination.
== END 2022-03-10 07:52 | disposition home or self-care (01) ==
LOC: HO.US 07:51
PROVIDERS: Visit Provider Physician Assistant Surgical
DX: E66.01 Morbid (severe) obesity due to excess calories (principal); E78.00 Pure hypercholesterolemia, unspecified
CPT/HCPCS: 74246; 76705; 76981

== ENCOUNTER → 2022-03-17 12:54 | Outpatient (BNVA) | payer MEDICAID, SELFPAY | PROVIDERS: PCP Internal Medicine; Visit Provider Surgery | DX: E66.01 Morbid (severe) obesity due to excess calories (principal); Z68.35 Body mass index [BMI] 35.0-35.9, adult; E78.00 Pure hypercholesterolemia, unspecified; R73.03 Prediabetes; J45.909 Unspecified asthma, uncomplicated; Z90.710 Acquired absence of both cervix and uterus | CPT/HCPCS: 99202 ==

== ENCOUNTER 2022-04-01 08:39 | Outpatient (REF) | payer MEDICAID, SELFPAY ==
--- NOTE | ~2022-04-01 | XR_ITS ---
EXAMINATION: XR SHOULDER, RIGHT CLINICAL INFORMATION: Right shoulder pain COMPARISON: None TECHNIQUE: AP external rotation, Grashey, scapular Y, and axillary views of the right shoulder. FINDINGS: No evidence of acute fracture or dislocation. Small chronic appearing ossification adjacent to the lateral aspect of the acromion.. Glenohumeral and acromioclavicular alignment is anatomic with normal joint space. XR/XR shoulder RT min 2V IMPRESSION: No acute osseous abnormality.
--- NOTE | 2022-04-01 08:59 | EMG_ITS ---
Please see scanned EMG / Nerve Conduction Report. MTDD
== END 2022-04-01 08:40 | disposition home or self-care (01) ==
LOC: HO.NEURO 08:39
PROVIDERS: Absent Provider Family Medicine; Visit Provider Internal Medicine
DX: M25.511 Pain in right shoulder (principal); M79.601 Pain in right arm
CPT/HCPCS: 73030; 95886; 95910

== ENCOUNTER → 2022-04-07 09:18 | Outpatient (BNVA) | payer MEDICAID, SELFPAY | PROVIDERS: PCP Internal Medicine; Referring Provider Internal Medicine; Visit Provider Physician Assistant Surgical | DX: E66.9 Obesity, unspecified (principal); Z68.35 Body mass index [BMI] 35.0-35.9, adult | CPT/HCPCS: 99212 ==

== ENCOUNTER → 2022-05-05 08:19 | Outpatient (BNVA) | payer MEDICAID, SELFPAY | PROVIDERS: PCP Internal Medicine; Referring Provider Internal Medicine; Visit Provider Physician Assistant Surgical | DX: E66.9 Obesity, unspecified (principal); Z68.34 Body mass index [BMI] 34.0-34.9, adult | CPT/HCPCS: 99212 ==

== ENCOUNTER → 2022-05-19 09:18 | Outpatient (BNVA) | payer MEDICAID, SELFPAY | PROVIDERS: PCP Internal Medicine; Visit Provider Surgery | DX: E66.01 Morbid (severe) obesity due to excess calories (principal); E78.00 Pure hypercholesterolemia, unspecified; R73.03 Prediabetes; J45.909 Unspecified asthma, uncomplicated; Z90.710 Acquired absence of both cervix and uterus; Z68.34 Body mass index [BMI] 34.0-34.9, adult | CPT/HCPCS: 99202 ==

== ENCOUNTER → 2022-05-26 14:45 | Outpatient (BNVA) | payer MEDICAID, SELFPAY | PROVIDERS: PCP Internal Medicine; Visit Provider Physician Assistant Surgical | DX: E66.9 Obesity, unspecified (principal); Z68.34 Body mass index [BMI] 34.0-34.9, adult | CPT/HCPCS: 99212 ==

== ENCOUNTER → 2022-05-29 08:56 | Outpatient (BNVA) | payer MEDICAID, SELFPAY | PROVIDERS: PCP Internal Medicine; Visit Provider Surgery | DX: Z13.89 Encounter for screening for other disorder (principal) ==

== ENCOUNTER → 2022-06-04 12:55 | Outpatient (BNVA) | payer MEDICAID, SELFPAY | PROVIDERS: PCP Internal Medicine; Visit Provider Surgery | DX: E66.01 Morbid (severe) obesity due to excess calories (principal); Z68.33 Body mass index [BMI] 33.0-33.9, adult; K44.9 Diaphragmatic hernia without obstruction or gangrene; E78.00 Pure hypercholesterolemia, unspecified; R73.03 Prediabetes; J45.909 Unspecified asthma, uncomplicated; Z90.710 Acquired absence of both cervix and uterus | CPT/HCPCS: 99212 ==

== ENCOUNTER 2022-06-10 08:44 | Inpatient (IN) | payer MEDICAID, SELFPAY ==
[2022-06-04 06:53] LABS: MANUAL DIFF FLAG NO
[2022-06-04 07:35] LABS: Basophils Absolute Auto 0.1 X10*3/uL (0.0-0.2); Basophils Percent Auto 1.3 % (0-2); Eosinophils Absolute Auto 0.1 X10*3/uL (0.0-0.4); Eosinophils Percent Auto 2.4 % (0-4); Hematocrit 42.8 % (37.0-47.0); Hemoglobin 13.7 g/dl (12.0-16.0); Imm Gran Abs Auto 0.02 X10*3/uL (0.00-0.03); Imm Gran Pct Auto 0.4 % (0.0-0.4); Lymphocytes Absolute Auto 2.1 X10*3/uL (1.2-4.9); Mean Corpuscular Hemoglobin 25.9 pg (27.0-33.0); Mean Corpuscular Volume 80.9 fL (80.0-98.0); Mean Platelet Volume 9.5 fL (9.4-12.3); Monocytes Absolute Auto 0.4 X10*3/uL (0.1-1.2); Monocytes Percent Auto 6.9 % (2-11); Neutrophils Absolute Auto 2.8 x10*3/uL (2.0-8.3); Platelet Count 404 X10*3/uL (160-400); Red Blood Count 5.29 X10*6/uL (4.20-5.50); Red Cell Distribution Width 13.3 % (11.0-16.0); White Blood Count 5.5 X10*3/uL (4.8-10.8)
[2022-06-04 07:41] LABS: Prothrombin Time 11.8 SEC (10.0-13.1)
[2022-06-04 07:44] LABS: Partial Thromboplastin Time 35.6 SEC (26.0-36.4)
[2022-06-04 08:01] LABS: Estimated Average Glucose 117 mg/dL; Hemoglobin A1c % 5.7 %
[2022-06-04 08:13] LABS: Alanine Aminotransferase 10 U/L (0-31); Albumin Level 4.5 g/dL (3.5-5.0); Alkaline Phosphatase 65 U/L (39-117); Anion Gap 18 (12-20); Aspartate Amino Transferase 16 U/L (5-31); Bilirubin Total 0.6 mg/dL (0.0-1.0); Blood Urea Nitrogen 10 mg/dL (9-16); C Reactive Protein 1.15 mg/dL (< or = 0.50); Calcium 9.3 mg/dL (8.4-10.2); Carbon Dioxide 22 mmol/L (22-29); Chloride 103 mmol/L (96-108); Cholesterol 211 mg/dL; Estimated Glomerular Filt Rate > 60; Glucose Random 67 mg/dL (60-115); HDL Cholesterol 37 mg/dL; Iron 72 mcg/dL (30-160); LDL Cholesterol Calculated 147 mg/dl; Percent Iron Saturation 24 % (15-50); Potassium 4.4 mmol/L (3.3-5.1); Sodium 139 mmol/L (135-145); Total Iron Binding Capacity 297 mcg/dL (228-428); Triglycerides 137 mg/dL; Unsaturated Iron Binding 225 ug/dL
[2022-06-04 08:27] LABS: Ferritin 298 ng/mL (10-122); TSH reflex Free T4 1.62 uIU/mL (0.32-4.0); Vitamin B12 1061 pg/mL (200-900); Vitamin D 25-OH Total 24.9 ng/mL (>30)
[2022-06-04 11:07] VITALS: BMI 34.4
[2022-06-08 15:53] LABS: Calcium (PTHI) 9.2 mg/dL (8.6-10.2); PTHI 41 pg/mL (16-77)
[2022-06-09 00:40] LABS: Zinc 98 mcg/dL (60-130)
--- NOTE | 2022-06-09 12:09 | P.CONAN_ITS ---
Documented by User: Leanna Bryant NP 06/09/22 12:11 HPI - Anesthesia Eval Consult details Narrative: 37yo F for Gastrectomy Sleeve,possible diaphragmatic hernia,possible ventral hernia,possible open PMFSH Active Problems Active Problems: All Active Problems (Updated 06/04/22 @ 10:28 by Angi Kumar RN) Heartburn (Acute) Hiatal hernia (Acute) Morbid obesity (Acute) Hypercholesterolemia (Acute) Obesity (BMI 30-39.9) (Acute) Cervical cancer screening (Acute) Breast cancer screening (Acute) Screen for sexually transmitted diseases (Acute) Borderline diabetes (Acute) H/O: hysterectomy (Acute) Asthma (Acute) Epigastric pain (Acute) Past Medical History Medical History Arthritis Asthma Epigastric pain Fibromyalgia Obesity Family History Family History Mother Thyroid atrophy Father Diabetes Surgical History Surgical History delivery delivered H/O: hysterectomy History of colonoscopy History of endoscopy Social History Social History Household Members Other:: single-4 kids Are you a primary medicare contact specialist to a significant other at home: No Do you presently have visiting nurse or other home services: No Alcohol intake: never Patient Tobacco Use Status: Never used Tobacco Second Hand Smoke Exposure: No Use of substances other than those prescribed or required for medical reasons: No Have you been hit, kicked, punched, or otherwise hurt by someone within the past year? If so, by whom?: No Are you DNR?: No Advance Directives: No Advance Directives Information Provided: Yes (info mailed w/ pre-op instructions) Advance Directives on File: No Recently lost weight without trying: No How much weight loss: 24-33 pounds Eating poorly because of decreased appetite: No Nutrition screen score: 3 Nutrition Risks: No Nutritional Risk Patient : No Poor oral hygiene: No (Upper partial) Current occupational status: employed Current occupation: [employer] Allergies Allergy/AdvReac Type Severity Reaction Status Date / Time No Known Allergies Allergy Verified 06/04/22 12:59 Home Medications Medication Instructions Recorded Confirmed Last Taken Type cholecalciferol (vitamin D3) 50 50 mcg PO DAILY 01/20/22 06/04/22 Unknown History mcg (2,000 unit) capsule (D3-1999) fluoxetine 20 mg tablet 20 mg PO QAM 01/20/22 06/04/22 Unknown History gabapentin 300 mg capsule 300 mg PO TID 01/20/22 06/04/22 Unknown History albuterol sulfate 90 mcg/actuation 2 puff inhalation Q4-6H PRN 02/25/22 06/04/22 Unknown History aerosol inhaler (ProAir HFA) Wheezing albuterol sulfate 2.5 mg/3 mL 2.5 mg inhalation Q6H PRN wheezing 04/07/22 06/04/22 Unknown History (0.083 %) solution for nebulization cetirizine 10 mg tablet 10 mg PO QAM 04/07/22 06/04/22 Unknown History fluticasone propionate 110 2 puff inhalation BID 04/07/22 06/04/22 06/10/22 History mcg/actuation HFA aerosol inhaler (Flovent HFA) fluticasone propionate 50 2 spray intranasal QAM 04/07/22 06/04/22 Unknown History mcg/actuation nasal spray,suspension cyclobenzaprine 10 mg tablet 10 mg PO TID PRN muscle spasm 05/05/22 06/04/22 Unknown History trazodone 100 mg tablet 100 mg PO BEDTIME PRN insomnia 05/05/22 06/04/22 Unknown History Exam Exam Date and Time: June 09, 2022 1209 Height,Weight and Vital Signs: Height 5 ft 2 in Weight 85.275 kg Pertinent Lab Results Pertinent Lab Results: Laboratory Tests 06/04/22 06/04/22 06/04/22 06:45 06:52 06:52 WBC 5.5 RBC 5.29 Hgb 13.7 Hct 42.8 MCV 80.9 MCH 25.9 L MCHC 32.0 RDW 13.3 Plt Count 404 H MPV 9.5 Immature Gran % (Auto) 0.4 Neut % (Auto) 51.0 Lymph % (Auto) 38.0 [place] % (Auto) 6.9 Eos % (Auto) 2.4 Baso % (Auto) 1.3 Lymph # (Auto) 2.1 [place] # (Auto) 0.4 Eos # (Auto) 0.1 Baso # (Auto) 0.1 Abs Immat Gran (auto) 0.02 Absolute Neuts (auto) 2.8 Absolute Nucleated RBC 0.000 Nucleated RBC % (auto) 0.0 PT 11.8 INR 1.0 APTT 35.6 Sodium Potassium Chloride Carbon Dioxide Anion Gap BUN Creatinine Estim Creat Clear Calc Estimated GFR Random Glucose Estimat Average Glucose Hemoglobin A1c % Calcium Iron TIBC % Saturation Unsat Iron Binding Ferritin Total Bilirubin AST ALT Alkaline Phosphatase C-Reactive Protein Total Protein Albumin Triglycerides Cholesterol LDL Cholesterol, Calc HDL Cholesterol Vitamin B12 25-OH Vitamin D Total TSH PTH Intact Calcium (PTH Intact) Zinc Blood Type O Positive Antibody Screen NEGATIVE 06/04/22 06/04/22 06/04/22 06:52 06:52 06:52 WBC RBC Hgb Hct MCV MCH MCHC RDW Plt Count MPV Immature Gran % (Auto) Neut % (Auto) Lymph % (Auto) [place] % (Auto) Eos % (Auto) Baso % (Auto) Lymph # (Auto) [place] # (Auto) Eos # (Auto) Baso # (Auto) Abs Immat Gran (auto) Absolute Neuts (auto) Absolute Nucleated RBC Nucleated RBC % (auto) PT INR APTT Sodium 139 Potassium 4.4 Chloride 103 Carbon Dioxide 22 Anion Gap 18 BUN 10 Creatinine 0.74 Estim Creat Clear Calc TNP Estimated GFR > 60 Random Glucose 67 Estimat Average Glucose 117 Hemoglobin A1c % 5.7 Calcium 9.3 Iron 72 TIBC 297 % Saturation 24 Unsat Iron Binding 225 Ferritin 298 H Total Bilirubin 0.6 AST 16 ALT 10 Alkaline Phosphatase 65 C-Reactive Protein 1.15 H Total Protein 7.0 Albumin 4.5 Triglycerides 137 Cholesterol 211 LDL Cholesterol, Calc 147 HDL Cholesterol 37 Vitamin B12 1061 H 25-OH Vitamin D Total 24.9 TSH 1.62 PTH Intact 41 Calcium (PTH Intact) 9.2 Zinc Blood Type Antibody Screen 06/04/22 06:52 WBC RBC Hgb Hct MCV MCH MCHC RDW Plt Count MPV Immature Gran % (Auto) Neut % (Auto) Lymph % (Auto) [place] % (Auto) Eos % (Auto) Baso % (Auto) Lymph # (Auto) [place] # (Auto) Eos # (Auto) Baso # (Auto) Abs Immat Gran (auto) Absolute Neuts (auto) Absolute Nucleated RBC Nucleated RBC % (auto) PT INR APTT Sodium Potassium Chloride Carbon Dioxide Anion Gap BUN Creatinine Estim Creat Clear Calc Estimated GFR Random Glucose Estimat Average Glucose Hemoglobin A1c % Calcium Iron TIBC % Saturation Unsat Iron Binding Ferritin Total Bilirubin AST ALT Alkaline Phosphatase C-Reactive Protein Total Protein Albumin Triglycerides Cholesterol LDL Cholesterol, Calc HDL Cholesterol Vitamin B12 25-OH Vitamin D Total TSH PTH Intact Calcium (PTH Intact) Zinc 98 Blood Type Antibody Screen Narrative Narrative: EKG 01/2022 Vent. Rate : 063 BPM ? ? Atrial Rate : 063 BPM ?? P-R Int : 154 ms? QRS Dur : 080 ms ? ? QT Int : 396 ms ? ? ? P-R-T Axes : 037 028 022 degrees ?? QTc Int : 405 ms ? Normal sinus rhythm Normal ECG When compared with ECG of 29-JUN-2021 14:38, No significant change was found Assessment and Plan Assessment Anesthesia Assessment: Chart Reviewed Documented by User: Alberta Floyd MD 06/10/22 10:06 PMFSH Past Medical History Medical History Arthritis Asthma Epigastric pain Fibromyalgia Obesity Family History Family History Mother Thyroid atrophy Father Diabetes Surgical History Surgical History delivery delivered H/O: hysterectomy History of colonoscopy History of endoscopy History of Problems with Anesthesia: No Social History Social History Household Members Other:: single-4 kids Are you a primary medicare contact specialist to a significant other at home: No Do you presently have visiting nurse or other home services: No Alcohol intake: never Patient Tobacco Use Status: Never used Tobacco Second Hand Smoke Exposure: No Use of substances other than those prescribed or required for medical reasons: No Have you been hit, kicked, punched, or otherwise hurt by someone within the past year? If so, by whom?: No Are you DNR?: No Advance Directives: No Advance Directives Information Provided: Yes (info mailed w/ pre-op in structions) Advance Directives on File: No Recently lost weight without trying: No How much weight loss: 24-33 pounds Eating poorly because of decreased appetite: No Nutrition screen score: 3 Nutrition Risks: No Nutritional Risk Patient : No Poor oral hygiene: No (Upper partial) Current occupational status: employed Current occupation: [employer] Allergies Allergy/AdvReac Type Severity Reaction Status Date / Time No Known Allergies Allergy Verified 06/04/22 12:59 Home Medications Medication Instructions Recorded Confirmed Last Taken Type cholecalciferol (vitamin D3) 50 50 mcg PO DAILY 01/20/22 06/04/22 Unknown History mcg (2,000 unit) capsule (D3-1999) fluoxetine 20 mg tablet 20 mg PO QAM 01/20/22 06/04/22 Unknown History gabapentin 300 mg capsule 300 mg PO TID 01/20/22 06/04/22 Unknown History albuterol sulfate 90 mcg/actuation 2 puff inhalation Q4-6H PRN 02/25/22 06/04/22 Unknown History aerosol inhaler (ProAir HFA) Wheezing albuterol sulfate 2.5 mg/3 mL 2.5 mg inhalation Q6H PRN wheezing 04/07/22 06/04/22 Unknown History (0.083 %) solution for nebulization cetirizine 10 mg tablet 10 mg PO QAM 04/07/22 06/04/22 Unknown History fluticasone propionate 110 2 puff inhalation BID 04/07/22 06/04/22 06/10/22 History mcg/actuation HFA aerosol inhaler (Flovent HFA) fluticasone propionate 50 2 spray intranasal QAM 04/07/22 06/04/22 Unknown History mcg/actuation nasal spray,suspension cyclobenzaprine 10 mg tablet 10 mg PO TID PRN muscle spasm 05/05/22 06/04/22 Unknown History trazodone 100 mg tablet 100 mg PO BEDTIME PRN insomnia 05/05/22 06/04/22 Unknown History Exam Airway Mallampati Class: II TM Dist: >3cm Neck ROM: Full Loose/Missing/Broken Teeth: No Heart: RRR Lungs: CTA Assessment and Plan Assessment Anesthesia Assessment: Anesthesia Plan Discussed Final Anesthetic Review History of Problems with Anesthesia: No NPO: Yes ASA Class: II Final Preanesthetic Review: Meds/Allgs Chart Reviewed, Consent Obtained/Reviewed and Anes Risks/Benef Reviewed Patient Risk: Low Procedure Risk: Intermediate Anesthetic Plan Anesthetic Plan: GA Disposition: Standard PACU
[2022-06-09 12:33] LABS: COVID-19 Test Negative (Negative); IDNOW Serial# 6674DD1D
[2022-06-09 21:28] LABS: Vitamin A 32 mcg/dL (38-98)
[2022-06-10] VITALS (11 sets, daily range): BP systolic 119–157; BP diastolic 72–89; PULSE 80–110; RESP 8–18; TEMP 36.1–37.2; O2SAT 95–100
[2022-06-10] MEDS: Scopolamine 1.5 MG PATCH.TD.3 TRANSDERMA (09:13)
[2022-06-10] MEDS: ceFAZolin Sodium/Dextrose,Iso 2 GM/50 ML PIGGYBACK IV ×2 (09:18→18:02)
--- NOTE | 2022-06-10 09:34 | PHA.MEDREC ---
Pharmacy Consult ? Medication Reconciliation Pharmacy has reviewed the medication reconciliation completed by nursing. Shonna Lopez, JannetteD
--- NOTE | 2022-06-10 12:50 | P.DS_ITS ---
DS: Providers Provider Date of Service: 06/11/22 Date of admission: 06/10/22 08:44 Primary care physician: Marguerite Barahona MD DS: Summary Hospital Course Hospital Course: ADMITTING DIAGNOSIS: morbid obesity, fibromyalgia, asthma, arthritis DISCHARGE DIAGNOSIS: same, s/p laparoscopic sleeve gastrectomy PAST SURGICAL HISTORY: section, hysterectomy PROCEDURE: upper endoscopy, laparoscopic sleeve gastrectomy DISCHARGE SUMMARY: History of Present Illness: The patient is a 37 year-old woman with a BMI of 40 kg/m2 and associated co-morbidities as described above. The patient had extensive work-up, lost 36 lbs preoperatively and was electively scheduled for laparoscopic, possible open sleeve gastrectomy and gastropexy. Risks and complications of the surgery were discussed with the patient in advance, particularly the possibility of , pulmonary embolism, anastomotic leak, bleeding, bowel injury, GERD, cardiac, renal or pulmonary complications. The patient understood all the risks and was in agreement with the surgical plan. Hospital Course: The patient underwent an uneventful laparoscopic sleeve gastrectomy with gastropexy on the day of admission. Postoperatively, the patient was transferred to the surgical floor. The patient received IV Acetaminophen and IV dilaudid for pain control. Patient was started on bariatric phase 1 diet POD #0. On postoperative day one, the patient was feeling well without nausea, vomiting, fevers, or tachycardia. The patient had some mild incisional pain and the abdomen was soft. On the morning of postoperative day one, the patient was continued on 1 ounce of water or ice every half hour. During the day, the patient did fairly well, having some incisional pain, but able to ambulate adequately and to tolerate liquids well. Since the patient is doing well, we decided that the patient was ready to be discharged. The patient was given instructions to follow-up with me next week and to call my office for any fever over 101, persistent abdominal pain, nausea, vomiting, GERD, symptoms of DVT such as calf tenderness, or leg swelling, or pulmonary embolism such as chest pain or shortness of breath. The patient was also instructed to drink 40-60 ounces of liquids per day using the 1-ounce cups. The patient had been given prescriptions for Tylenol for pain, Zofran prn for nausea, and pantoprazole and carafate previously. The patient was encouraged to ambulate and use the incentive spirometer. The patient was allowed to shower, but no baths, and encouraged to stay active at home. All of these instructions were given to the patient personally. All questions were answered and the patient understood all instructions, the instructions were also given to the patient in print. Time Spent with Patient Time attestation: Total time managing care of this patient today ____ minutes. Discharge coordination time: Less than 30 minutes Quality: Safe Use of Opioids Does Pt have an Active Cancer Diagnosis on the Problem List?: No Quality: Stroke Does the patient have a stroke diagnosis?: No Physical Exam Vital Signs: Vital Signs: Last Vital Signs Temp 97.6 F 06/10/22 08:46 Pulse 86 06/10/22 08:46 Resp 18 06/10/22 08:46 BP 120/80 06/10/22 08:46 Pulse Ox 97 06/10/22 08:46 O2 Del Method 06/10/22 08:46 BMI result Body Mass Index 34.4 DS: Data Data Completed and Pending Labs on day of discharge: Laboratory Results - last 24 hr 06/04/22 06:52 Vitamin A 32 L Discharge Plan Discharge Anticipated Discharge Date/Time: 06/11/22 10:47 Patient Disposition: Home, Self-Care Discharge Diagnosis: s/p sleeve gastrectomy Referrals: Marguerite Hopson MD [Primary Care Provider] - 1 Week Discharge Medications: Continued gabapentin 300 mg capsule 300 mg PO TID fluoxetine 20 mg tablet 20 mg PO QAM albuterol sulfate [ProAir HFA] 90 mcg/actuation HFA aerosol inhaler 2 puff inhalation Q4-6H PRN (Reason: Wheezing) trazodone 100 mg tablet 100 mg PO BEDTIME PRN (Reason: insomnia) cyclobenzaprine 10 mg tablet 10 mg PO TID PRN (Reason: muscle spasm) ondansetron HCl 4 mg tablet 4 mg PO Q6H PRN (Reason: nausea and vomiting) Qty: 20 0RF pantoprazole 40 mg tablet,delayed release (DR/EC) 40 mg PO QAM 30 Days Qty: 30 2RF sucralfate 100 mg/mL suspension 10 ml PO BID 30 Days Qty: 600 2RF acetaminophen 500 mg/15 mL liquid 500 mg PO Q6H PRN (Reason: fever or pain) Qty: 237 2RF fluticasone propionate 50 mcg/actuation spray,suspension 2 spray intranasal QAM fluticasone propionate [Flovent HFA] 110 mcg/actuation HFA aerosol inhaler 2 puff inhalation BID cetirizine 10 mg tablet 10 mg PO QAM albuterol sulfate 2.5 mg /3 mL (0.083 %) solution for nebulization 2.5 mg inhalation Q6H PRN (Reason: wheezing) Discontinued cholecalciferol (vitamin D3) [D3-2000] 50 mcg (2,000 unit) capsule 50 mcg PO DAILY Activity on Discharge: No heavy lifting Stand Alone Forms: Patient Portal Discharge page Care Plan Goals: weight loss Health Concerns: obesity Plan of Treatment: No tub baths, sex or returning to work until discussed at first post op appointment. No exercise, alcohol, tobacco or illegal drug use. Continue to use incentive spirometer hourly while awake. Walk in home for 5- 10 minutes every 2 hours during the first week. Continue phase 1 diet today and start phase 2 diet tomorrow morning. Follow all instructions in the bariatric handbook and call with any questions. 1. Please call your doctor or come back to the emergency room should any new symptoms arise. 2. You will receive a courtesy call from [facility] 24-48 hours aft er discharge. 3. Activity: abstain from alcohol, practice limited stair climbing, no bending, no driving, no exercise, no illicit substances, no lifting, no sex, no tub bath, no work. 4. Diet: continue as discussed with bariatric team.. 5. Dressing Change/Wound Care: Do not change or remove surgical dressings unless they are wet or soiled. 6. Call your doctor if: - Your temperature exceeds 101.5 F - You experience excessive pain or swelling - You have an unexpected reaction to medication - You have excessive bleeding - You experience continued vomiting/nausea - Your incision begins to separate - Your incision shows signs of infection such as increased redness, swelling, excessive pain, heat, or drainage (light blood or clear fluid is normal) 7. General instructions: No lifting greater than 5 lbs for the next 4 weeks[address] driving within 24 hours of taking narcotic pain medications. If you do not move your bowels in the next 2 days, please take milk of magnesia over the counter. Please follow the post op diet and do not advance your diet until you are seen in the office in about 2 weeks. Please walk around your home every hour or two to prevent blood clots from forming in your legs. You do not need to wake from sleeping to walk. Please sleep in a bed or couch to prevent kinking at the hips and knees. Please take your incentive spirometer (your lung instructional design specialist) home with you and use it for the next few days to prevent pneumonias. You may shower, no hot tubs, baths or swimming pools. Please call the office with any questions or concerns such as increasing abdominal pain, fever, chills, shortness of breath, chest pain, leg pain or swelling, or redness or drainage from your incisions. Do not hesitate to contact the office with any questions at . The patient's medical history has been reviewed and they are considered low risk for post op DVT and therefore DVT prophylaxis is not considered necessary. Travel after surgery was reviewed. The patient has not disclosed any travel plans during the first 30 days after surgery and they have been advised that within the first 30 days after surgery any bus, plane, train or car travel over 2 hours in duration is contraindicated due to the possibility of developing blood clots from immobility. Any travel, needs to include periods of ambulation of 10 minutes in duration every 2 hours. The patient was instructed to discuss any plans for travel during this period with their bariatric surgeon. Assessment: stable, post op sleeve gastrectomy
--- NOTE | 2022-06-10 13:06 | MHC.SHP ---
Pre-Procedural Eval Section A Date of Service: 06/10/22 The patient is an INPATIENT: Yes The History & Physical has been completed within 30 days and I have reviewed it.: Yes Section B Chief Complaint: Obesity S/P Sleeve Gastrectomy Allergies: Allergies Allergy/AdvReac Type Severity Reaction Status Date / Time No Known Allergies Allergy Verified 06/04/22 12:59 Plan I have reviewed the history and physical and performed a pertinent physical examination on my patient. No changes have occurred unless specified. Time Spent With Patient Time: Total time managing care of this patient today ____ minutes.
--- NOTE | 2022-06-10 13:21 | P.OP_ITS ---
Operative Note Operative Note Date of Service: 06/10/22 Narrative: Preop diagnosis: [Obesity, FABIAN, hypercholesterolemia, prediabetes] Postop diagnosis: [Same] Procedure: [Laparoscopic sleeve gastrectomy, intraoperative upper endoscopy, gastropexy] Surgeon: Ronni Thompson MD Assist: [Martha Escobar PA-C] Anesthesia: [GET, Marcaine, 0.5% w/ epi] Estimated blood loss: [3cc] Specimen: [Portion of stomach with fundus] Intraoperative findings: [FABIAN and enlarged liver, no evidence of hiatal hernia, grossly normal stomach] Indications: [The patient is a 37-year-old woman who is at a lifelong herzog with obesity and entered our program for surgery a loss thank you with a BMI of 40.0 and a weight of 219 lb. Following positive lifestyle changes, she dropped her BMI to 33.6 and weight 283 lb. Options of continued medical weight loss versus bariatric surgery including sleeve gastrectomy and gastric bypass were all discussed with the risks and benefits. I reviewed the inherent risks of this procedure which include, but are not limited to: Bleeding that could require another operation or blood transfusion; the inherent risks of transfusion reaction infectious disease from blood transfusions; the risk of staple line leaks that could cause sepsis, multi-system organ failure and ; the risk of mesenteric or deep vein thrombosis of the lower extremities that could cause a fatal pulmonary embolism was reviewed; the risk of GERD that could require conversion to gastric bypass was discussed; the risk of recurrent hiatal hernia, especially in the setting of weight regain was reviewed. The risk of weight regain if maladaptive eating and sedentary behavior continue was discussed. The importance of proper diet and increased activity to augment surgical weight loss and the fact that no operation would result in weight loss of poor dietary decisions and sedentary behavior are resumed were discussed at length and apparently understood. The patient had an spanish medical interpreter present for all visits and her questions seemed to be satisfactorily answered..] Procedure: [Patient was identified in the preoperative holding area and again in operating room 6. The patient was identified in the preoperative holding area by myself and again in the operating suite by myself and the team. Patient was placed supine on the operating table. Safety straps were utilized and a footboard utilized. The patient was induced in general endotracheal anesthesia administered with excellent effect. An appropriate time-out was performed. The patient's abdomen was then widely prepped and draped in the usual manner for surgery using chlorhexidine. Antibiotics per protocol were administered by Anesthesia. After infiltrating preemptive local in the skin and subcutaneous tissues in the epigastrium approximately 10cm from the xiphoid and the midline of the epigastrium, a stab incision was made sharply in the left subcostal abdomen and the Veress needle inserted without incident. An appropriate drop test was performed then a pneumoperitoneum of 15 mmHg was obtained using carbon dioxide. Opening pressures were 7 mmHg. Next, a 5 mm 0 degree scope over a 5 mm Optiview trocar was used to access the abdomen via the epigastric incision in the midline. Once the abdomen was entered, the the trocar obturator was removed and the laparoscope was used to confirm there was no injury from the Veress needle nor trocar insertion injury to the bowel or mesentery, then the scope was switched to a 5 mm 45 degree laparoscope. Next, using preemptive local, additional 5 mm trocars were placed under direct laparoscopic vision on the patient's left abdomen, then right and the 5 mm midline trocar upsized to a 12 mm to accommodate the stapler. The patient was then positioned in reverse Trendelenburg and the liver retractor deployed through the right lateral 5 mm trocar and secured. The patient's liver was somewhat large and the left lobe hemorrhagic with FABIAN prior to positioning the liver retractor. A 40 [place] ViSiGi bougie was inserted by Anesthesia per os and advanced to the stomach to decompress. It was then withdrawn to the GE junction all under direct laparoscopic vision. Dissection was begun along the greater curvature using the 5 mm [place] LigaSure for hemostasis and continued to the left ethan of the diaphragm. Dissection was then carried towards the pylorus to 3-4 cm from the pylorus and retro gastric adhesions lysed. The gastroesophageal fat pad was carefully mobilized taking care to avoid injury to the esophagus and stomach and dissection carried towards the short gastrics taking care to avoid injury to the spleen and splenic artery. The diaphragmatic hiatus was carefully examined for a hernia. Next, the 40 Fr ViSiGi bougie was advanced by anesthesia under direct vision and laparoscopic guidance and positioned in the antrum approxim ately 3 cm from the pylorus using laparoscopic graspers to serve as a guide for a stapled sleeve gastrectomy. Stapling was performed with [employer] Endo-NATHANIEL stapler with a purple 45 and then orange 45 and 60 loads. The bougie served as a guide to maintain the same sleeve caliber to avoid stricture & sleeve distortion. The 10 mm clip diamond driller was used to apply additional clips to the staple line. Care was taken to be sure that the sleeve laid flat and was without stricture. Once the sleeve was complete, the portion of stomach was placed in the lower abdomen to be sent for permanent section. The staple line, gastrocolic omentum, spleen and short gastric areas were all inspected for hemostasis which was found to be good. The ViSiGi bougie used for a leak test by reducing the reverse Trendelenburg and instilling sterile saline. Anesthesia that ran of O2 at 1 L per minute via the tube and no bubbles were demonstrated from the staple line. Next, the bougie was withdrawn under laparoscopic vision used to suction the esophagus and hypopharynx and then discarded. Next, I broke scrub perform an on-table upper endoscopy to assess the sleeve and the esophagus and stomach. The patient was returned to neutral position and the Olympus 160 gastroscope was advanced taking care to preserve the endotracheal tube. The esophagus was intubated without incident. Minimal air was insufflated and the scope advanced into the newly formed sleeve. The staple line was inspected for hemostasis and the morphology of the sleeve appeared straight with a uniform diameter. Intraoperatively, there was no evidence of staple line leak seen during laparoscopy as air was insufflated via endoscope. The scope was then used to aspirate the air from the sleeve withdrawn and removed. I then rescrubbed to return to the operative field and again inspected the field for hemostasis. The patient was again placed in reverse Trendelenburg. A gastropexy was performed using 2-0 Polysorb suture to secure the sleeve gastrectomy to the gastrocolic omentum. After final assessment for hemostasis, the patient was returned to neutral position, a Yue used to withdraw the stomach which was sent for permanent section. The fascia of the 12 mm midline was closed using an 0 Polysorb on a suture Passer under direct laparoscopic vision. The abdomen was then deflated and all trocars removed. The suture was then tied and the skin closed with 4-0 Monocryl subcuticular sutures. The abdomen was then washed and dried, benzoin and Steri-Strips applied followed by Band-Aids. The patient tolerated the procedure well was then extubated the recover in stable condition. All sponge needle and instrument counts were correct x2.]
[2022-06-10 17:11] LABS: Hematocrit 40.8 % (37.0-47.0)
[2022-06-10 17:23] LABS: Anion Gap 18 (12-20); Blood Urea Nitrogen 3 mg/dL (9-16); Calcium 8.2 mg/dL (8.4-10.2); Carbon Dioxide 17 mmol/L (22-29); Chloride 107 mmol/L (96-108); Creatinine Clr Calc Pharmacy 100.6; Estimated Glomerular Filt Rate > 60; Glucose Random 104 mg/dL (60-115); Potassium 4.4 mmol/L (3.3-5.1); Sodium 138 mmol/L (135-145)
[2022-06-10] MEDS: Lactated Ringers 1,000 ML 100 ML IVCONT (17:53)
[2022-06-10] MEDS: Gabapentin 300 MG CAPSULE PO (19:03)
[2022-06-10] MEDS: Metoclopramide HCl 10 MG/2 ML VIAL IVPUSH (19:03)
[2022-06-10] MEDS: 0.9 % Sodium Chloride Flush 3 ML SYRINGE IVFLUSH (19:04)
[2022-06-10] MEDS: Famotidine/PF 20 MG/2 ML VIAL IVPUSH (19:04)
--- NOTE | 2022-06-10 19:25 | PHA.MEDREC ---
Pharmacy Consult ? Medication Reconciliation Rn has completed the medication reconciliation, pharmacy reviewed.
[2022-06-10] MEDS: Acetaminophen 1,000 MG/100 ML PIGGYBACK 16.7 MG IV (22:03)
[2022-06-10] MEDS: ondansetron HCL 4 MG/2 ML VIAL IVPUSH (23:00)
[2022-06-11] MEDS: Acetaminophen 1,000 MG/100 ML PIGGYBACK 16.7 MG IV ×2 (03:44→10:16)
[2022-06-11] MEDS: Lactated Ringers 1,000 ML 100 ML IVCONT (03:45)
[2022-06-11 04:00] VITALS: BP 125/68; PULSE 83; RESP 16; TEMP 37; O2SAT 97
[2022-06-11] MEDS: Metoclopramide HCl 10 MG/2 ML VIAL IVPUSH (04:02)
[2022-06-11 06:35] LABS: MANUAL DIFF FLAG NO
[2022-06-11 06:39] LABS: Basophils Percent Auto 0.3 % (0-2); Eosinophils Percent Auto 0.2 % (0-4); Hematocrit 39.7 % (37.0-47.0); Hemoglobin 12.7 g/dl (12.0-16.0); Imm Gran Abs Auto 0.07 X10*3/uL (0.00-0.03); Imm Gran Pct Auto 0.7 % (0.0-0.4); Lymphocytes Absolute Auto 1.1 X10*3/uL (1.2-4.9); Lymphocytes Percent Auto 10.3 % (20-40); Mean Corpuscular Hemoglobin 26.1 pg (27.0-33.0); Mean Corpuscular Volume 81.5 fL (80.0-98.0); Mean Platelet Volume 9.1 fL (9.4-12.3); Monocytes Absolute Auto 0.7 X10*3/uL (0.1-1.2); Monocytes Percent Auto 6.3 % (2-11); Neutrophils Absolute Auto 8.6 x10*3/uL (2.0-8.3); Neutrophils Percent Auto 82.2 % (45-73); Platelet Count 422 X10*3/uL (160-400); Red Blood Count 4.87 X10*6/uL (4.20-5.50); Red Cell Distribution Width 13.7 % (11.0-16.0); White Blood Count 10.5 X10*3/uL (4.8-10.8)
[2022-06-11 06:58] LABS: Anion Gap 18 (12-20); Blood Urea Nitrogen < 3 mg/dL (9-16); Calcium 8.2 mg/dL (8.4-10.2); Carbon Dioxide 14 mmol/L (22-29); Chloride 105 mmol/L (96-108); Creatinine Clr Calc Pharmacy 99.4; Estimated Glomerular Filt Rate > 60; Glucose Random 131 mg/dL (60-115); Sodium 132 mmol/L (135-145)
--- NOTE | 2022-06-11 06:59 | P.PNGS_ITS ---
Subjective Subjective Date of Service: 06/11/22 Interval history: Tolerating minimal clears due to nausea. Vomiting has resolved. Physical Exam Vital Signs: Vital Signs: Last Vital Signs Temp 98.6 F 06/11/22 04:00 Pulse 83 06/11/22 04:00 Resp 16 06/11/22 04:00 BP 125/68 06/11/22 04:00 Pulse Ox 97 06/11/22 04:00 O2 Del Method 06/11/22 04:00 O2 Flow Rate 2 06/10/22 17:29 BMI result Body Mass Index 34.4 Patient is nontoxic She is having no respiratory distress Abdominal binder and dressings are clean and intact Objective Data Active Medications Albuterol Sulfate (Albuterol Sulfate (0.083%) 2.5 Mg/3 Ml Vial.Neb) 2.5 mg INHALE ONCE PRN PRN Reason: Shortness of Breath/Wheezing Albuterol Sulfate (Albuterol Sulfate (0.083%) 2.5 Mg/3 Ml Vial.Neb) 2.5 mg INHALE ONCE PRN PRN Reason: Wheezing Albuterol Sulfate (Albuterol Sulfate 90 Mcg 8 Gm Inhaler) 2 puff INHALE Q4H PRN PRN Reason: Wheezing Famotidine (Famotidine/Pf 20 Mg/2 Ml Vial) 20 mg IVPUSH BID [facility] Last Admin: 06/10/22 19:04 Dose: 20 mg Documented By: ALYSSA Fentanyl (Fentanyl Citrate/Pf 100 Mcg/2 Ml Vial) 50 mcg IVPUSH Q5M PRN; Protocol PRN Reason: Pain, Severe (Pain Scale 7-10) Fentanyl (Fentanyl Citrate/Pf 100 Mcg/2 Ml Vial) 25 mcg IVPUSH Q5M PRN; Protocol PRN Reason: Pain, Moderate (Pain Scale 4-6 Fluoxetine HCl (Fluoxetine Hcl 20 Mg Capsule) 20 mg PO DAILY [facility] Fluticasone Propionate (Fluticasone Propionate Nasal 16 Gm [place]) 2 spray NOSTRIL-B DAILY [facility] Fluticasone Propionate (Fluticasone Propionate 100 Mcg Blst.W.Dev) 2 puff INHALE RBID [facility] Last Admin: 06/10/22 19:49 Dose: Not Given Documented By: MARIA DOLORES Non-Admin Reason: Med Not Available Gabapentin (Gabapentin 300 Mg Capsule) 300 mg PO TID [facility] Last Admin: 06/10/22 19:03 Dose: 300 mg Documented By: ALYSSA Hydromorphone HCl (Hydromorphone Hcl 0.5 Mg/0.5 Ml Syringe) 0.25 mg IVPUSH Q5M PRN; Protocol PRN Reason: Pain, Severe (Pain Scale 7-10) Hydromorphone HCl (Hydromorphone Hcl 0.5 Mg/0.5 Ml Syringe) 0.25 mg IVPUSH Q4H PRN; Protocol PRN Reason: Pain, Moderate (Pain Scale 4-6 Promethazine HCl 6.25 mg/ (Sodium Chloride) 50.25 mls @ 201 mls/hr IV ONCE PRN PRN Reason: Nausea and Vomiting Lactated Ringer's (Lr) 1,000 mls @ 100 mls/hr IVCONT .Q10H [facility] Last Admin: 06/11/22 03:45 Dose: 100 mls/hr Documented By: ALYSSA Acetaminophen (Ofirmev) 1,000 mg in 100 mls @ 16.7 mls/hr IV .Q6H [facility] Last Admin: 06/11/22 03:44 Dose: 16.7 mls/hr Documented By: ALYSSA Metoclopramide HCl (Metoclopramide Hcl 10 Mg/2 Ml Vial) 10 mg IVPUSH Q6H PRN PRN Reason: Nausea Last Admin: 06/11/22 04:02 Dose: 10 mg Documented By: ALYSSA Ondansetron HCl (Ondansetron Hcl 4 Mg/2 Ml Vial) 4 mg IVPUSH ONCE PRN PRN Reason: Nausea and Vomiting Ondansetron HCl (Ondansetron Hcl 4 Mg/2 Ml Vial) 4 mg IVPUSH Q8H [facility] Last Admin: 06/10/22 23:00 Dose: 4 mg Documented By: ALYSSA Oxycodone HCl (Oxycodone Hcl Immed Release 5 Mg Tablet) 5 mg PO ONCE PRN PRN Reason: Pain, Severe (Pain Scale 7-10) Sodium Chloride (0.9 % Sodium Chloride Flush 3 Ml Syringe) 3 ml IVFLUSH QSHIFT [facility] Last Admin: 06/10/22 19:04 Dose: 3 ml Documented By: ALYSSA Trazodone HCl (Trazodone Hcl 100 Mg Tablet) 100 mg PO BEDTIME PRN PRN Reason: insomnia Labs 06/11/22 05:35 06/11/22 05:35 Labs: Laboratory Results - last 24 hr 06/10/22 06/11/22 06/11/22 17:05 05:35 05:35 MCV 81.5 MCH 26.1 L MCHC 32.0 RDW 13.7 Plt Count 422 H MPV 9.1 L Immature Gran % (Auto) 0.7 H Neut % (Auto) 82.2 H Lymph % (Auto) 10.3 L [place] % (Auto) 6.3 Eos % (Auto) 0.2 Baso % (Auto) 0.3 Lymph # (Auto) 1.1 L [place] # (Auto) 0.7 Eos # (Auto) 0.0 Baso # (Auto) 0.0 Abs Immat Gran (auto) 0.07 H Absolute Neuts (auto) 8.6 H Absolute Nucleated RBC 0.000 Nucleated RBC % (auto) 0.0 Anion Gap 18 18 Estim Creat Clear Calc 100.6 99.4 Estimated GFR > 60 > 60 Random Glucose 104 131 H Calcium 8.2 L D 8.2 L Procedures Date of Service Date of Service: 06/11/22 Progress Note: A&P Assessment and plan (1) S/P laparoscopic sleeve gastrectomy: Status: Acute (2) Morbid obesity: Status: Acute (3) Hypercholesterolemia: Status: Acute (4) Obesity (BMI 30-39.9): Status: Acute Plan Evaluate later for possible discharge this morning or this afternoon. Time Spent With Patient Time: Total time managing care of this patient today ____ minutes. Quality Stroke Does the patient have a stroke diagnosis?: No VTE Prior VTE?: No VTE Risk Level:: Surgical - moderate VTE Device Contraindication: N/A - Device Ordered VTE Drug Contraindication: Treatment Not Indicated
--- NOTE | 2022-06-11 07:00 | PC.NURSE ---
pt vomited around 2200, about 20 cc of bloody emesis.
[2022-06-11] MEDS: FLUoxetine HCl 20 MG CAPSULE PO (07:22)
[2022-06-11] MEDS: Gabapentin 300 MG CAPSULE PO (07:22)
[2022-06-11] MEDS: ondansetron HCL 4 MG/2 ML VIAL IVPUSH (07:23)
[2022-06-11] MEDS: Famotidine/PF 20 MG/2 ML VIAL IVPUSH (07:24)
[2022-06-11] MEDS: 0.9 % Sodium Chloride Flush 3 ML SYRINGE IVFLUSH (07:24)
[2022-06-11 07:31] VITALS: BP 127/75; PULSE 89; RESP 17; TEMP 36.3; O2SAT 99
--- NOTE | 2022-06-11 08:28 | MHC.CM.PN ---
CM met with Patient, her , and her Son at bedside. Patient lives in an apartment with her Son and she uses a cane to assist with mobility. Home/self care is the goal and CM has initiated and will follow for dc planning. Patient has received Pfizer/Covid vax x3 and her PCP is Dr. Marguerite Samano.
[2022-06-11 10:06] VITALS: O2SAT 97
[2022-06-11] MEDS: Fluticasone Propionate Nasal 16 GM SPRAY 2 SPRAY NOSTRIL-B (10:17)
[2022-06-11 11:47] VITALS: BP 132/72; PULSE 75; RESP 14; TEMP 36.8; O2SAT 98
--- NOTE | 2022-06-11 12:22 | MHC.CM.PN ---
Patient has been medically cleared for dc to home today, self care.
--- NOTE | 2022-06-11 13:57 | HO.POSTANES ---
Post Anesthesia Evaluation Post Anesthesia Evaluation Vital Signs: Vital Signs Temp Pulse Resp BP Pulse Ox O2 Del Method 06/11/22 11:47 98.3 F 75 14 132/72 98 Room Air 06/11/22 10:06 97 Room Air 06/11/22 07:31 97.3 F 89 17 127/75 99 Room Air 06/11/22 04:00 98.6 F 83 16 125/68 97 Room Air Anesthesia: General Endotracheal-GETA Mental Status: Awake Pain Control: Satisfactory Nausea/Vomiting: None Hydration: Adequate Anesthesia-Related Issues: No Anes. Related Issues
[2022-06-12 04:59] LABS: Vitamin B1 8 nmol/L (8-30)
== END 2022-06-11 13:45 | disposition home or self-care (01) | DRG 403 ==
LOC: HO.SSSA 12:50 → HO.S3 16:41
PROVIDERS: Physician Assistant; Physician Assistant Surgical; Admitting Provider Surgery; PCP Internal Medicine; Visit Provider Surgery
PROC: 0DB64Z3 Excision of Stomach, Percutaneous Endoscopic Approach, Vertical (ICD-10-PCS; CPT 43845; principal; 2022-06-10 10:10)
DX: E66.01 Morbid (severe) obesity due to excess calories (principal); K75.81 Nonalcoholic steatohepatitis (NASH); E78.00 Pure hypercholesterolemia, unspecified; M19.90 Unspecified osteoarthritis, unspecified site; M79.7 Fibromyalgia; R73.03 Prediabetes; Z20.822 Contact with and (suspected) exposure to COVID-19; Z79.51 Long term (current) use of inhaled steroids; Z79.899 Other long term (current) drug therapy
CPT/HCPCS: 36415; 80048; 80053; 80061; 82306; 82607; 82728; 83036; 83540; 83970; 84425; 84443; 84590; 84630; 85014; 85018; 85025; 85610; 85730; 86140; 86850; 86900; 86901; 87635; 88307; 88342; 99212; C9088; J0131; J0690; J1100; J1170; J2250; J2405; J2765; J2795; J3010

== ENCOUNTER → 2022-06-17 12:56 | Outpatient (BNVA) | payer MEDICAID, SELFPAY | PROVIDERS: PCP Internal Medicine; Visit Provider Physician Assistant ==

== ENCOUNTER → 2022-06-24 08:49 | Outpatient (BNVA) | payer MEDICAID, SELFPAY | PROVIDERS: PCP Internal Medicine; Visit Provider Physician Assistant Surgical ==

== ENCOUNTER → 2022-07-06 12:59 | Outpatient (BNVA) | payer MEDICAID, SELFPAY | PROVIDERS: PCP Internal Medicine; Visit Provider Physician Assistant Surgical ==

== ENCOUNTER → 2022-07-23 11:34 | Outpatient (BNVA) | payer MEDICAID, SELFPAY | PROVIDERS: PCP Internal Medicine; Visit Provider Physician Assistant | DX: Z98.84 Bariatric surgery status (principal) ==

== ENCOUNTER → 2022-08-13 14:50 | Outpatient (BNVA) | payer MEDICAID, SELFPAY | PROVIDERS: PCP Internal Medicine; Visit Provider Physician Assistant ==

== ENCOUNTER → 2022-10-29 15:04 | Outpatient (BNVA) | payer MEDICAID, SELFPAY | PROVIDERS: PCP Internal Medicine; Visit Provider Dietitian, Registered | DX: E66.9 Obesity, unspecified (principal); Z68.25 Body mass index [BMI] 25.0-25.9, adult; Z98.84 Bariatric surgery status; Z71.3 Dietary counseling and surveillance | CPT/HCPCS: 97803 ==